=== PATIENT | male | born 1950 | race Caucasian/White ===

== ENCOUNTER 2020-04-15 02:24 | Emergency (ER) | payer MEDICARE, SELFPAY ==
--- NOTE | ~2020-04-15 | XR_ITS ---
EXAMINATION: XR hip LT min 2V DATE: 04/15/2020 02:53 INDICATION: Left hip pain. Fall. TECHNIQUE: 2 views of left hip were obtained. COMPARISON: Left hip radiographs 06/25/2019 FINDINGS: Bone alignment is normal. No fracture. There is moderate left hip osteoarthritis. IMPRESSION: 1. Moderate left hip osteoarthritis. Reviewed, dictated and finalized at location A.
[2020-04-15 02:23] VITALS: BP 172/74; PULSE 86; RESP 20; TEMP 37.3; O2SAT 99
--- NOTE | 2020-04-15 02:39 | ED.FALL ---
HPI - Fall General Chief Complaint: Fall Stated Complaint: L HIP PAIN/FALL Time Seen by Provider: 04/15/20 02:33 History of Present Illness HPI Narrative: Intermittent hip pain for months. Worse throughout the day yesterday. Overnight last night he was having trouble sleeping due to pain. He tried to get up to go to the bathroom and he felt like his leg gave out. He fell to the ground. He denies hitting his head or sustaining injury in the fall. He was not able to get off the ground so EMS was called. On arrival to the ED he says that he has no pain in the hip or anywhere and he would like to go home. Related Data Home Medications Medication Instructions Recorded Confirmed allopurinol [Zyloprim] 100 mg PO DAILY 10/26/19 10/31/19 aspirin 325 mg PO DAILY 10/26/19 10/31/19 carvedilol 25 mg PO BID 10/26/19 10/31/19 fluoxetine 40 mg PO DAILY 10/26/19 10/31/19 guanfacine 1 mg PO HS 10/26/19 10/31/19 hydralazine 10 mg PO TID 10/26/19 10/31/19 levetiracetam 500 mg PO BID 10/26/19 10/31/19 levothyroxine 175 mcg PO DAILY 10/26/19 10/31/19 rosuvastatin 10 mg PO DAILY 10/26/19 10/31/19 venlafaxine 75 mg PO DAILY 10/26/19 10/31/19 Allergies Allergy/AdvReac Type Severity Reaction Status Date / Time No Known Allergies Allergy Verified 04/15/20 02:29 Review of Systems Review of Systems: All systems reviewed & are unremarkable except as noted in HPI and below Constitutional: Constitutional: Denies fever(s) Eyes: Eyes: Denies change in vision Cardiovascular: Cardiovascular: Denies chest pain Respiratory: Respiratory: Denies dyspnea Musculoskeletal: Musculoskeletal: Denies back pain Neurologic: Denies dizziness and Denies syncope [facility] Past Medical History Medical History Chronic anemia CKD (chronic kidney disease) Stage III with creatinine currently at his baseline around 2.2 CVA (cerebral vascular accident) Hemorrhagic stroke in 2004, thrombotic stroke in 2014 resulting in left-sided hemiparesis and left facial droop, 3rd stroke 09/2018 in the left mid brain resulting in diplopia, right-sided weakness and double vision Depression Diabetic nephropathy Diabetic polyneuropathy History of BPH Hx of gout Hx of seizure disorder Hyperlipidemia Hypertension Hypothyroidism Insulin dependent diabetes mellitus On insulin pump. Patient's last hemoglobin A1c October 2018 was 7.[address] Surgical History Surgical History H/O cataract removal with insertion of prosthetic lens Bilateral History of shoulder surgery Right shoulder surgery to remove a bone spur Status post placement of implantable loop recorder December 2018 Family History Family History Father Diabetes mellitus Mother Family history of arthritis Other Family history of hearing loss Social History Social History Social History: They have living will papers but not power inspector wreath and she would like to have paperwork drawn up to say that she has power inspector wreath. The patient is a full code at this time. They have 2 children. 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 Tobacco type: smokeless tobacco Smokeless tobacco user: chewing tobacco Additional smoking assessment comments: chews tobacco daily Alcohol intake: current Drinks per week: 7 Substance use: current Substance use type: other Other substance usage details: chews tobacco Gender identity (if verbalized by the patient): Male Spiritual care concerns: No Agree to blood products: Yes Exam Const: General: no acute distress and alert Orientation/consciousness: patient oriented x3 HENMT: Head: normal to inspection Resp: Effort & Inspection: normal respiratory effort Auscultation: clear to auscultation bilaterally Cardio: Rate
--- NOTE | 2020-04-15 03:00 | PC.NURSE ---
at nurses station. states pt thinks his blood glucose is low. Blood glucose checked. FSBS 126.
[2020-04-15 03:03] LABS: Glucose Point of Care 126 (65-105)
--- NOTE | 2020-04-15 03:20 | PC.NURSE ---
pt assist x1 ambulate to bathroom. depends changed. pt tolerated well. denies pain
[2020-04-15 03:51] VITALS: BP 134/74; PULSE 87; RESP 20; O2SAT 98
== END 2020-04-15 03:54 | disposition home or self-care (01) ==
PROVIDERS: Emergency Provider Emergency Medicine
DX: M25.552 Pain in left hip (principal); E11.22 Type 2 diabetes mellitus with diabetic chronic kidney disease; I12.9 Hypertensive chronic kidney disease with stage 1 through stage 4 chronic kidney disease, or unspecified chronic kidney disease; F17.290 Nicotine dependence, other tobacco product, uncomplicated; N18.3 Chronic kidney disease, stage 3 (moderate); Z79.4 Long term (current) use of insulin; Z96.41 Presence of insulin pump (external) (internal); E11.42 Type 2 diabetes mellitus with diabetic polyneuropathy; D63.1 Anemia in chronic kidney disease; I69.954 Hemiplegia and hemiparesis following unspecified cerebrovascular disease affecting left non-dominant side; I69.992 Facial weakness following unspecified cerebrovascular disease; I69.998 Other sequelae following unspecified cerebrovascular disease; H53.2 Diplopia; I69.951 Hemiplegia and hemiparesis following unspecified cerebrovascular disease affecting right dominant side; M10.9 Gout, unspecified; Z98.42 Cataract extraction status, left eye; Z98.41 Cataract extraction status, right eye; Z96.1 Presence of intraocular lens; W18.39XA Other fall on same level, initial encounter
CPT/HCPCS: 73502; 82948; 99283

== ENCOUNTER 2020-05-16 16:03 | Emergency (ER) | payer MEDICARE, SELFPAY ==
--- NOTE | ~2020-05-16 | CT_ITS ---
EXAMINATION: CT brain wo con DATE: 05/16/2020 18:00 INDICATION: Headache. TECHNIQUE: Computed tomography (CT) of the head was performed without intravenous contrast. The mA wa s adjusted according to patient size. Iterative reconstruction technique was employed. The dose-lengt h product was 681.00 mGy-cm. COMPARISON: Head CT 10/26/2019, brain MRI 10/30/2019 FINDINGS: There are old infarcts involving the bilateral basal ganglia, right thalamus, and right fro ntoparietal region. There are scattered areas of low attenuation in the cerebral white matter. There is ex vacuo dilatation of body of right lateral ventricle. There are likely changes of ocular lens re placement surgeries. There is mild mucosal thickening in the ethmoid sinuses. There are old fracture deformities of the nasal bones. There are bilateral mastoid effusions. IMPRESSION: 1. Old infarcts involving the bilateral basal ganglia, right thalamus, and right frontoparietal regio n. 2. Mild nonspecific cerebral white matter disease, which likely represents chronic small vessel ische viktoria disease. Reviewed, dictated and finalized at location A. IMPRESSION: 1. Old infarcts involving the bilateral basal ganglia, right thalamus, and righ t frontoparietal region. 2. Mild nonspecific cerebral white matter disease, which likely represents certified mortician cande small vessel ischemic disease.
--- NOTE | ~2020-05-16 | XR_ITS ---
EXAMINATION: XR chest 1V portable DATE: 05/16/2020 18:07 INDICATION: Altered mental status. Hypertension. TECHNIQUE: A single frontal view of the chest was obtained. COMPARISON: Chest 2 views 06/25/2019 FINDINGS: There is mild elevation of right hemidiaphragm. No pneumonia, pleural effusion, or pneumoth orax. Cardiomegaly is noted. An electronic implant overlies left chest. IMPRESSION: 1. Cardiomegaly. Reviewed, dictated and finalized at location A. IMPRESSION: 1. Cardiomegaly.
[2020-05-16 16:23] VITALS: BP 156/86; PULSE 69; RESP 16; TEMP 36.8; O2SAT 99
--- NOTE | 2020-05-16 16:41 | ECG_ITS ---
Measurements Intervals [place] Rate: 70 P: 18 ME: 151 QRS: -8 QRSD: 99 T: 28 QT: 418 QTc: 453 Interpretive Statements SINUS RHYTHM DELAYED PRECORDIAL R/S TRANSITION NONSPECIFIC ST & T-WAVE ABNORMALITY- DIFFUSE LEADS BASELINE ARTIFACT- I, II, III, AVR, AVL, AVF BORDERLINE ECG Electronically Signed On 05-17-2020 11:06:12 CDT by Paddy Rose D.O.
[2020-05-16 16:53] LABS: Basophils Percent Auto 0.3 % (0.2-1.2); Eosinophils Absolute Auto 0.1 K/mm3 (0-0.3); Eosinophils Percent Auto 1.2 % (0-4.4); Hematocrit 28.7 % (42.0-52.0); Hemoglobin 9.9 g/dL (14.0-18.0); Immature Granulocyte Absolute 0.03 K/mm3 (0.00-0.031); Immature Granulocyte Percent A 0.3 % (0-0.5); Lymphocytes Absolute Auto 1.33 K/mm3 (0.9-3.2); Lymphocytes Percent Auto 13.5 % (18.3-44.2); Mean Corpuscular HGB Conc 34.5 g/dl (32-36); Mean Corpuscular Hemoglobin 30.4 pg (26-34); Mean Platelet Volume 9.9 fl (7.4-10.4); Monocytes Absolute Auto 1.5 K/mm3 (0.1-0.6); Monocytes Percent Auto 15.6 % (2.6-8.5); Neutrophils Absolute Auto 6.8 K/mm3 (1.3-6.7); Neutrophils Percent Auto 69.1 % (45.5-73.1); Platelet Count Result 233 k/mm3 (150-375); Red Blood Count 3.26 M/mm3 (4.6-6.20); Red Cell Distribution Width 13.2 % (11.5-14.5); White Blood Count 9.9 K/mm3 (4.5-10.0)
[2020-05-16 17:02] LABS: INR 1.2; Prothrombin Time 14.4 Seconds (11.1-14.7)
[2020-05-16 17:03] LABS: Partial Thromboplastin Time 38.1 SECONDS (22.3-36.8)
[2020-05-16 17:05] LABS: Blood Urea Nitrogen 28 mg/dL (9-20); Calcium 8.2 mg/dL (8.4-10.2); Carbon Dioxide 28 mmol/L (22-30); Chloride 105 mmol/L (98-107); Estimated CRCL calculation 23 ml/min; Estimated Glomerular Filt Rate 26; Glucose 108 mg/dL (75-110); Potassium 3.1 mmol/L (3.4-5.0); Sodium 140 mmol/L (137-145)
[2020-05-16 17:19] LABS: Troponin I 0.026 ng/mL (0.000-0.034)
--- NOTE | 2020-05-16 17:50 | PC.NURSE ---
PT TO ED ROOM 13 VIA PERSONAL WHEELCHAIR. C/O RT SIDED HEADACHE, HX 3 STROKES, LEFT SIDE DEFICIT.
--- NOTE | 2020-05-16 18:44 | PC.NURSE ---
ERP at bedside for assessment.
[2020-05-16 19:02] LABS: Glucose Point of Care 62 (65-105)
--- NOTE | 2020-05-16 19:03 | PC.NURSE ---
Per ERP - pt does not need an iv at this time.
[2020-05-16 19:04] VITALS: BP 204/99; PULSE 69; RESP 14; O2SAT 100
--- NOTE | 2020-05-16 19:24 | ED.GENADULT ---
HPI - General Adult General Chief complaint: Neuro Symptoms/Deficit Stated complaint: leavitt/neck pain/ams since last night Time Seen by Provider: 05/16/20 18:19 Source: patient and family Mode of arrival: wheelchair Limitations: no limitations History of Present Illness HPI narrative: 69-year-old with a history of diabetes on insulin pump, CVA here with complaints of headache. Patient states that he had pain in his vertex which radiated to his left arm earlier this morning. He states that he took aspirin and 2 glucose tablets which brought the pain down . Patient reports that for the past few weeks he is not been eating enough. Patient states that he has no appetite at times. He denies any chest pain, shortness of breath, abdominal pain. No history of fever or chills. Onset (ago): hour(s) (8) Location: head Radiation: extremity (Left upper extremity) Severity: moderate Severity scale (1-10): 6 Quality: aching Pain Consistency: now resolved Relieving factors: other (Aspirin and glucose tablet) Exacerbating factors: none Treatments prior to arrival: aspirin Related Data Home Medications Medication Instructions Recorded Confirmed allopurinol [Zyloprim] 100 mg PO DAILY 10/26/19 10/31/19 aspirin 325 mg PO DAILY 10/26/19 10/31/19 carvedilol 25 mg PO BID 10/26/19 10/31/19 fluoxetine 40 mg PO DAILY 10/26/19 10/31/19 guanfacine 1 mg PO HS 10/26/19 10/31/19 hydralazine 10 mg PO TID 10/26/19 10/31/19 levetiracetam 500 mg PO BID 10/26/19 10/31/19 levothyroxine 175 mcg PO DAILY 10/26/19 10/31/19 rosuvastatin 10 mg PO DAILY 10/26/19 10/31/19 venlafaxine 75 mg PO DAILY 10/26/19 10/31/19 Allergies Allergy/AdvReac Type Severity Reaction Status Date / Time No Known Allergies Allergy Verified 04/15/20 02:29 Review of Systems Review of Systems: All systems reviewed & are unremarkable except as noted in HPI and below Constitutional: Constitutional: Reports as per HPI Eyes: Eyes: Reports no additional eye complaints ENT: Reports system reviewed and no additional complaints, except as documented Cardiovascular: Cardiovascular: Reports as per HPI Respiratory: Respiratory: Reports as per HPI Gastrointestinal: Gastrointestinal: Reports no additional gastrointestinal complaints Musculoskeletal: Musculoskeletal: Reports no additional musculoskeletal complaints [facility] Past Medical History Medical History Chronic anemia CKD (chronic kidney disease) Stage III with creatinine currently at his baseline around 2.2 CVA (cerebral vascular accident) Hemorrhagic stroke in 2004, thrombotic stroke in 2014 resulting in left-sided hemiparesis and left facial droop, 3rd stroke 09/2018 in the left mid brain resulting in diplopia, right-sided weakness and double vision Depression Diabetic nephropathy Diabetic polyneuropathy History of BPH Hx of gout Hx of seizure disorder Hyperlipidemia Hypertension Hypothyroidism Insulin dependent diabetes mellitus On insulin pump. Patient's last hemoglobin A1c October 2018 was 7.[address] Surgical History Surgical History H/O cataract removal with insertion of prosthetic lens Bilateral History of shoulder surgery Right shoulder surgery to remove a bone spur Status post placement of implantable loop recorder December 2018 Family History Family History Father Diabetes mellitus Mother Family history of arthritis Other Family history of hearing loss Social History Social History Social History: They have living will papers but not power patent prosecution attorney and she would like to have paperwork drawn up to say that she has power patent prosecution attorney. The patient is a full code at this time. They have 2 children. 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 Tobacco type: smokeless tobacco
[2020-05-16 19:31] VITALS: BP 183/91; PULSE 76; RESP 18; O2SAT 96
[2020-05-16 20:02] VITALS: BP 203/90; PULSE 70; RESP 15; O2SAT 99
== END 2020-05-16 20:04 | disposition home or self-care (01) ==
PROVIDERS: Emergency Provider Family Medicine
DX: R51 Headache (principal); E11.22 Type 2 diabetes mellitus with diabetic chronic kidney disease; I12.9 Hypertensive chronic kidney disease with stage 1 through stage 4 chronic kidney disease, or unspecified chronic kidney disease; N18.3 Chronic kidney disease, stage 3 (moderate); E03.9 Hypothyroidism, unspecified; E11.21 Type 2 diabetes mellitus with diabetic nephropathy; E11.42 Type 2 diabetes mellitus with diabetic polyneuropathy; N40.0 Benign prostatic hyperplasia without lower urinary tract symptoms; Z96.41 Presence of insulin pump (external) (internal); Z79.4 Long term (current) use of insulin; E78.5 Hyperlipidemia, unspecified; M10.9 Gout, unspecified; D63.1 Anemia in chronic kidney disease; I69.954 Hemiplegia and hemiparesis following unspecified cerebrovascular disease affecting left non-dominant side; I69.992 Facial weakness following unspecified cerebrovascular disease; I69.998 Other sequelae following unspecified cerebrovascular disease; H53.2 Diplopia; G40.909 Epilepsy, unspecified, not intractable, without status epilepticus; Z98.42 Cataract extraction status, left eye; Z98.41 Cataract extraction status, right eye; Z96.1 Presence of intraocular lens; F17.220 Nicotine dependence, chewing tobacco, uncomplicated; Z79.82 Long term (current) use of aspirin; R90.82 White matter disease, unspecified; R94.31 Abnormal electrocardiogram [ECG] [EKG]
CPT/HCPCS: 36415; 70450; 71045; 80048; 82948; 84484; 85025; 85610; 85730; 93005; 99284

== ENCOUNTER 2020-06-04 12:26 | Emergency (ER) | payer MEDICARE, SELFPAY ==
--- NOTE | ~2020-06-04 | XR_ITS ---
XR femur RT min 2V DATE: 06/04/2020 13:48 INDICATION: Fall. Right leg injury, pain TECHNIQUE: AP and lateral views COMPARISON: None FINDINGS: No fracture or dislocation, periosteal reaction or bone destruction of the right femur is e vident. Normal alignment at the right hip and knee joints. There is extensive arterial calcification . There is chondrocalcinosis of the medial and lateral compartments of the knee. IMPRESSION: Right knee joint chondrocalcinosis No fracture or bone destruction of the right femur Reviewed, dictated and finalized at location B.
--- NOTE | ~2020-06-04 | XR_ITS ---
XR hip RT min 3V w AP pelvis DATE: 06/04/2020 13:48 INDICATION: Fall. Right hip and leg pain. TECHNIQUE: AP pelvis. AP, lateral and crosstable lateral views of right hip COMPARISON: None FINDINGS: No pelvic fracture or bone destruction. Normal alignment at the pubic symphysis and sacroil iac joints. No fracture or dislocation, avascular necrosis or bone destruction of the right hip is evident. Hip j oint spaces are symmetric and relatively preserved. IMPRESSION: No pelvic or right hip fracture is detected Reviewed, dictated and finalized at location B.
--- NOTE | ~2020-06-04 | XR_ITS ---
XR ankle RT min 3V DATE: 06/04/2020 13:48 INDICATION: Right lower extremity pain after fall TECHNIQUE: 3 views COMPARISON: None FINDINGS: There is a linear oblique fracture through the distal fibular shaft/ lateral malleolus with one cortical width maximal lateral displacement. No other fracture or any dislocation is evident. The ankle mortise is intact. There is calcification of the anterior and posterior tibial arteries and dorsalis pedis artery. IMPRESSION: Minimally laterally displaced fracture of the distal fibular shaft/lateral malleolus Reviewed, dictated and finalized at location B. IMPRESSION: Minimally laterally displaced fracture of the distal fibular shaft/ lateral malleolus
[2020-06-04 12:41] VITALS: BP 160/60; PULSE 66; RESP 16; TEMP 36.6; O2SAT 100
--- NOTE | 2020-06-04 15:02 | ED.GENADULT ---
HPI - General Adult General Chief complaint: Extremity Injury, Lower <BO Brown Last Filed: 06/04/20 15:11> Stated complaint: leg injury <BO Brown Last Filed: 06/04/20 15:11> Time Seen by Provider: 06/04/20 13:18 <BO Brown Last Filed: 06/04/20 15:11> Source: patient and family <BO Brown Last Filed: 06/04/20 15:11> Mode of arrival: ambulatory <BO Brown Last Filed: 06/04/20 15:11> Limitations: no limitations <BO Brown Last Filed: 06/04/20 15:11> History of Present Illness HPI narrative: Patient is a 70-year-old male who presents with family for evaluation of right leg injury that occurred 2 days ago patient injured the right ankle and thigh when he was trying to transfer out of bed on his own patient has history of left-sided deficits secondary to CVA patient notes moderate aching pain to the right ankle with mild pain to the right thigh patient has been unable to transfer or bear weight since the onset of symptoms. Patient denies head injury syncope loss of consciousness <BO Brown Last Filed: 06/04/20 15:11> Related Data Home medications: Home Medications Medication Instructions Recorded Confirmed allopurinol [Zyloprim] 100 mg PO DAILY 10/26/19 10/31/19 aspirin 325 mg PO DAILY 10/26/19 10/31/19 carvedilol 25 mg PO BID 10/26/19 10/31/19 fluoxetine 40 mg PO DAILY 10/26/19 10/31/19 guanfacine 1 mg PO HS 10/26/19 10/31/19 hydralazine 10 mg PO TID 10/26/19 10/31/19 levetiracetam 500 mg PO BID 10/26/19 10/31/19 levothyroxine 175 mcg PO DAILY 10/26/19 10/31/19 rosuvastatin 10 mg PO DAILY 10/26/19 10/31/19 <BO Brown Last Filed: 06/04/20 15:11> Allergies/adverse reactions: Allergies Allergy/AdvReac Type Severity Reaction Status Date / Time No Known Allergies Allergy Verified 06/04/20 12:46 <Hiro Stallworth PA-C - Last Filed: 06/04/20 15:11> Review of Systems Review of Systems: All systems reviewed & are unremarkable except as noted in HPI and below <Hiro Stallworth PA-C - Last Filed: 06/04/20 15:11> [facility] Past Medical History Medical History: Medical History Chronic anemia CKD (chronic kidney disease) Stage III with creatinine currently at his baseline around 2.2 CVA (cerebral vascular accident) Hemorrhagic stroke in 2004, thrombotic stroke in 2014 resulting in left-sided hemiparesis and left facial droop, 3rd stroke 09/2018 in the left mid brain resulting in diplopia, right-sided weakness and double vision Depression Diabetic nephropathy Diabetic polyneuropathy History of BPH Hx of gout Hx of seizure disorder Hyperlipidemia Hypertension Hypothyroidism Insulin dependent diabetes mellitus On insulin pump. Patient's last hemoglobin A1c October 2018 was 7.[address] <Hiro Stallworth PA-C - Last Filed: 06/04/20 15:11> Surgical History Surgical History: Surgical History H/O cataract removal with insertion of prosthetic lens Bilateral History of shoulder surgery Right shoulder surgery to remove a bone spur Status post placement of implantable loop recorder December 2018 <Hiro Stallworth PA-C - Last Filed: 06/04/20 15:11> Social History Social History: Social History Social History: They have living will papers but not power tax attorney and she would like to have paperwork drawn up to say that she has power tax attorney. The patient is a full code at this time. They have 2 children. 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 Tobacco type: smokeless tobacco Smokeless tobacco user: chewing tobacco Additional smoking assessment comments: chews tobacco daily Alcohol intake: current Drinks per week: 7 Substance use: current
--- NOTE | 2020-06-04 15:43 | PCCCNOTE ---
Imaging report and ED physician note faxed to Dr Penny Vergara [phone] at [phone]
[2020-06-04 16:50] VITALS: BP 170/83; PULSE 68; RESP 97; O2SAT 16
== END 2020-06-04 16:50 | disposition home or self-care (01) ==
PROVIDERS: Emergency Provider General Practice
DX: S82.61XA Displaced fracture of lateral malleolus of right fibula, initial encounter for closed fracture (principal); X50.0XXA Overexertion from strenuous movement or load, initial encounter; I13.10 Hypertensive heart and chronic kidney disease without heart failure, with stage 1 through stage 4 chronic kidney disease, or unspecified chronic kidney disease; E11.22 Type 2 diabetes mellitus with diabetic chronic kidney disease; N18.3 Chronic kidney disease, stage 3 (moderate); Z79.4 Long term (current) use of insulin; Z96.41 Presence of insulin pump (external) (internal); E03.9 Hypothyroidism, unspecified
CPT/HCPCS: 29515; 73502; 73552; 73610; 99284

== ENCOUNTER 2020-06-13 16:50 | Emergency (ER) | payer MEDICARE, SELFPAY ==
--- NOTE | ~2020-06-13 | XR_ITS ---
EXAMINATION: XR wrist LT min 3V EXAM DATE: 06/13/2020 19:32 INDICATION: Initial encounter following injury, with pain of the left wrist. TECHNIQUE: Left wrist frontal, frontal with ulnar deviation, oblique and lateral projections obtained and reviewed. There is no prior study for comparison. FINDINGS: Left wrist scapholunate joint space is maintained. There are no acute fractures or dislocat ions identified. There is no subcutaneous gas. There are arterial calcifications, arteriosclerosis. There are no radiopaque foreign bodies. IMPRESSION: 1. Left wrist exam without acute osseous findings. Reviewed, dictated and finalized at location A.
--- NOTE | ~2020-06-13 | XR_ITS ---
EXAMINATION: XR hip LT 2V w AP pelvis EXAM DATE: 06/13/2020 18:56 INDICATION: Initial encounter following injury, with pain of the fall, left hip pain. TECHNIQUE: Left hip frontal, 'frog leg' projections for interpretation. Frontal projection pelvis. C omparison is made to prior examination from 06/04/2020. FINDINGS: Smooth left hip femoral head contour, no radiographic evidence of avascular necrosis. Ther e is moderate symmetric bilateral hip primary osteoarthritis. There are no acute fractures or disloca tions identified. There is no subcutaneous gas. The soft tissue is unremarkable. There are no rad iopaque foreign bodies. IMPRESSION: 1. Pelvis, left hip exam without acute osseous findings. Reviewed, dictated and finalized at location A.
--- NOTE | ~2020-06-13 | XR_ITS ---
EXAMINATION: XR humerus LT EXAM DATE: 06/13/2020 18:57 INDICATION: Initial encounter following injury, with pain of the left arm. TECHNIQUE: 2 orthogonal projections left humerus. There is no prior study for comparison. FINDINGS: There are no acute fractures or dislocations identified. There is no subcutaneous gas. The re is soft tissue swelling over the elbow posteriorly. There are no radiopaque foreign bodies. IMPRESSION: 1. XR humerus LT exam without acute osseous findings. 2. Soft tissue swelling. Reviewed, dictated and finalized at location A.
--- NOTE | ~2020-06-13 | XR_ITS ---
EXAMINATION: XR forearm LT 2V EXAM DATE: 06/13/2020 18:56 INDICATION: Initial encounter following injury, with pain of the left forearm. TECHNIQUE: Left forearm frontal and lateral projections obtained and reviewed. There is no prior pamela dy for comparison. FINDINGS: There is possible scaphoid waist fracture. Please clinically correlate, if there is tendern ess over the wrist recommend dedicated wrist exam. The left radius and ulna are unremarkable. IMPRESSION: 1. Possible left scaphoid waist fracture, clinical correlation. Reviewed, dictated and finalized at location A.
--- NOTE | ~2020-06-13 | CT_ITS ---
EXAMINATION: CT brain wo con EXAM DATE: 06/13/2020 18:25 INDICATION: Fall, abrasion to left ear. History of stroke. TECHNIQUE: Spiral CT of the head was performed without contrast. Axial, coronal and sagittal images were reviewed. The dose-length product (DLP) for this examination was 681.00 mGy-cm. The exposure w as tailored according to patient size, and iterative reconstruction (ASIR) was used as additional dos e reduction technique. Comparison is made to prior examination from 05/16/2020. FINDINGS: There is moderate to large old right-sided middle cerebral artery distribution infarction. There are bilateral basal ganglia lacunar infarctions. There is no acute intraparenchymal hemorrhage. No evidence of intraparenchymal brain mass lesion. No evidence of acute infarction. Please note t hat initial head CT has limited sensitivity for small or acute infarctions. There is mild periventric ular and subcortical hypodensity, nonspecific but probably related to small vessel ischemic disease. There is mild prominence of the sulci and ventricles related to cerebral atrophy. There is intrac ranial carotid arteriosclerosis. There are no extra-axial collections. There is no mass effect or m idline shift. Patient has had bilateral ocular lens surgery. Soft tissue is unremarkable. The visu alized sinuses and mastoid air cells are well aerated. There is no interval change. IMPRESSION: 1. Old infarctions. 2. Chronic age related findings. Reviewed, dictated and finalized at location A.
[2020-06-13 17:10] VITALS: BP 164/72; PULSE 74; RESP 18; TEMP 36.7; O2SAT 99
--- NOTE | 2020-06-13 17:51 | PC.NURSE ---
Pt c/o need to defecate and asking to go to the bathroom. Explained due to patient's hx of falling frequently do not want to take a chance of the pt falling again. Offered bedpan multiple times and the patient refused.
--- NOTE | 2020-06-13 18:11 | ED.FALL ---
HPI - Fall General Chief Complaint: Fall Stated Complaint: fall, left arm injury Time Seen by Provider: 06/13/20 17:05 Source: patient and family Mode of arrival: wheelchair Limitations: dementia History of Present Illness HPI Narrative: This patient is a 70 year old male with history left hemiplegia, CVA, DM who presents for evaluation s/p fall. His states patient was attempting to transfer to his wheel chair without assistance and he fell on to his left side. She states patient has abrasion to left ear and left arm swelling with abrasions. Patient denies pain to arm or his left leg. He also denies left rib pain. complaint: fall Related Data Home Medications Medication Instructions Recorded Confirmed allopurinol [Zyloprim] 100 mg PO DAILY 10/26/19 06/12/20 aspirin 325 mg PO DAILY 10/26/19 06/12/20 carvedilol 25 mg PO BID 10/26/19 06/12/20 fluoxetine 40 mg PO DAILY 10/26/19 06/12/20 guanfacine 1 mg PO HS 10/26/19 06/12/20 hydralazine 10 mg PO TID 10/26/19 06/12/20 levetiracetam 500 mg PO BID 10/26/19 06/12/20 levothyroxine 175 mcg PO DAILY 10/26/19 06/12/20 rosuvastatin 10 mg PO DAILY 10/26/19 06/12/20 Allergies Allergy/AdvReac Type Severity Reaction Status Date / Time No Known Allergies Allergy Verified 06/13/20 17:19 Review of Systems Review of Systems: All systems reviewed & are unremarkable except as noted in HPI and below Constitutional: Constitutional: Denies chills and Denies fever(s) Cardiovascular: Cardiovascular: Denies chest pain Respiratory: Respiratory: Denies cough and Denies dyspnea Musculoskeletal: Musculoskeletal: Denies arthralgias [facility] Past Medical History Medical History Chronic anemia CKD (chronic kidney disease) Stage III with creatinine currently at his baseline around 2.2 CVA (cerebral vascular accident) Hemorrhagic stroke in 2004, thrombotic stroke in 2014 resulting in left-sided hemiparesis and left facial droop, 3rd stroke 09/2018 in the left mid brain resulting in diplopia, right-sided weakness and double vision Depression Diabetic nephropathy Diabetic polyneuropathy History of BPH Hx of gout Hx of seizure disorder Hyperlipidemia Hypertension Hypothyroidism Insulin dependent diabetes mellitus On insulin pump. Patient's last hemoglobin A1c October 2018 was 7.[address] Surgical History Surgical History H/O cataract removal with insertion of prosthetic lens Bilateral History of shoulder surgery Right shoulder surgery to remove a bone spur Status post placement of implantable loop recorder December 2018 Social History Social History Social History: They have living will papers but not power patent attorney and she would like to have paperwork drawn up to say that she has power patent attorney. The patient is a full code at this time. They have 2 children. 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 Tobacco type: smokeless tobacco Smokeless tobacco user: chewing tobacco Additional smoking assessment comments: chews tobacco daily Alcohol intake: current Drinks per week: 7 Substance use: current Substance use type: other Other substance usage details: chews tobacco Gender identity (if verbalized by the patient): Male Spiritual care concerns: No Agree to blood products: Yes Exam Const: General: alert Other: oriented to person, place, age HENMT: Other: left ear lobe pinna with bruising and abrasion Eyes: EOM: EOMs intact bilaterally Chest: Chest palpation & inspection: normal inspection of the chest and no tenderness Resp: Effort & Inspection: normal respiratory effort and no retractions Auscultation: clear to auscultation bilaterally Cardio: Rate: regular rate Rhythm: regular rhythm Heart sounds: no murmurs GI: GI Palp: Yes Soft to palpation and N
--- NOTE | 2020-06-13 18:32 | PC.NURSE ---
Pt's to xray to remove pt's blood sugar reader from left arm.
--- NOTE | 2020-06-13 19:05 | PC.NURSE ---
Report to NHUNG Rivera, to continue care.
[2020-06-13 20:19] VITALS: BP 178/75; PULSE 79; RESP 19; TEMP 36.3; O2SAT 100
== END 2020-06-13 20:20 | disposition home or self-care (01) ==
PROVIDERS: Emergency Provider General Practice
DX: S51.812A Laceration without foreign body of left forearm, initial encounter (principal); S61.512A Laceration without foreign body of left wrist, initial encounter; W01.0XXA Fall on same level from slipping, tripping and stumbling without subsequent striking against object, initial encounter; Z72.0 Tobacco use; I12.9 Hypertensive chronic kidney disease with stage 1 through stage 4 chronic kidney disease, or unspecified chronic kidney disease; E11.22 Type 2 diabetes mellitus with diabetic chronic kidney disease; N18.3 Chronic kidney disease, stage 3 (moderate); Z96.41 Presence of insulin pump (external) (internal); Z79.4 Long term (current) use of insulin; F32.9 Major depressive disorder, single episode, unspecified; E11.43 Type 2 diabetes mellitus with diabetic autonomic (poly)neuropathy; E03.9 Hypothyroidism, unspecified; E78.5 Hyperlipidemia, unspecified
CPT/HCPCS: 70450; 73060; 73090; 73110; 73502; 99284

== ENCOUNTER 2020-06-18 15:58 | Outpatient (CLI) | payer MEDICARE, SELFPAY ==
--- NOTE | ~2020-06-18 | MR_ITS ---
EXAMINATION: MR brain/brain stem wo con DATE: 06/18/2020 17:07 INDICATION: Stroke. TECHNIQUE: Magnetic resonance imaging (MRI) of the brain and brainstem was performed without intraven ous contrast. Sequences included sagittal and axial T1-weighted FSE, axial diffusion-weighted FS EPI, axial T2*-weighted GRE, axial T2-weighted FLAIR Propeller, and axial T2-weighted Propeller. Apparent diffusion coefficient (ADC) maps were created. COMPARISON: Brain MRI 10/30/2019, head CT 06/13/2020, 05/16/20 FINDINGS: There is chronic encephalomalacia involving right frontal and parietal lobes and the right basal ganglia and right thalamus. There is a small old infarct in the left frontal lobe francisco radiat a. There is chronic Wallerian degeneration in the brainstem on the right. There is a 10 mm intraparen chymal hematoma in right temporal lobe. There are scattered areas of old blood products in the right frontoparietal region, right basal ganglia, and left frontal lobe. There are scattered areas of nonsp ecific increased T2-weighted signal intensity in the cerebral white matter. There is no acute ischemi c infarct or abnormal mass lesion. There is ex vacuo dilatation of body of right lateral ventricle. T here are likely changes of ocular lens replacement surgeries. There is mild mucosal thickening in the ethmoid sinuses. There are bilateral mastoid effusions. IMPRESSION: 1. Subacute 10 mm intraparenchymal hematoma in right temporal lobe, stable from 06/13/20 and new from 05/16/20. 2. Chronic encephalomalacia involving the right frontal and parietal lobes, right basal ganglia, righ t thalamus, and left frontal lobe. 3. Moderate nonspecific cerebral white matter disease, which likely represents chronic small vessel i schemic disease. Reviewed, dictated and finalized at location A. IMPRESSION: 1. Subacute 10 mm intraparenchymal hematoma in right temporal lobe, stable from 06/13/20 and new from 05/16/20. 2. Chronic encephalomalacia involving the right frontal and parietal lobes, rig ht basal ganglia, right thalamus, and left frontal lobe. 3. Moderate nonspecific cerebral white matter disease, which likely represents chronic small vessel ischemic disease.
== END 2020-06-18 15:59 | disposition home or self-care (01) ==
PROVIDERS: Visit Provider Psychiatry & Neurology Neurology
DX: I63.9 Cerebral infarction, unspecified (principal); R93.0 Abnormal findings on diagnostic imaging of skull and head, not elsewhere classified
CPT/HCPCS: 70551

== ENCOUNTER 2020-06-29 14:12 | Inpatient (IN) | payer MEDICARE, SELFPAY ==
[2020-06-29] VITALS (8 sets, daily range): BP systolic 112–163; BP diastolic 56–86; PULSE 61–88; RESP 12–18; TEMP 35.9–36.9; O2SAT 96–99; BMI 26.0
--- NOTE | ~2020-06-29 | CT_ITS ---
EXAMINATION: CT BRAIN W/O DATE: 06/29/2020 14:50 INDICATION: Loss of consciousness. Lethargy. TECHNIQUE: Computed tomography (CT) of the head was performed without intravenous contrast. The dose- length product was 681.00 mGy-cm. The mA was adjusted according to patient size. Iterative reconstruc tion technique was employed. COMPARISON: 06/13/2020 FINDINGS: Generalized atrophy. There are chronic infarctions of the right frontal lobe, parietal lobe , left frontal lobe, bilateral basal ganglia. There is intracranial atherosclerosis. There are scatte red mild periventricular and subcortical white matter changes, most likely related to small vessel is chemic disease (microangiopathy). No ventriculomegaly or midline shift. Midline sagittal images demonstrate a normal corpus callosum, c raniovertebral junction and sella turcica. Basilar cisterns are patent. Small mastoid effusions. Paranasal sinuses are unremarkable. No depressed skull fractures. IMPRESSION: 1. No acute intracranial abnormality. 2: Multiple chronic bilateral infarctions. Reviewed, dictated and finalized at location A.
--- NOTE | ~2020-06-29 | XR_ITS ---
EXAMINATION: XR chest 1V 06/29/2020 14:51 INDICATION: Shortness of breath PROCEDURE: AP view of the chest COMPARISON: 05/16/2020 FINDINGS: The lungs are clear. There is probable old healed left humeral fracture. The cardiomediasti nal silhouette is within normal limits. There are no pleural effusions. There is no pneumothorax barkley spected. IMPRESSION: 1: NO ACUTE CARDIOPULMONARY DISEASE. Reviewed, dictated and finalized at location A.
--- NOTE | ~2020-06-29 | CT_ITS ---
EXAMINATION: CT abdomen pelvis wo con DATE: 06/29/2020 18:17 INDICATION: Hematuria TECHNIQUE: Computed tomography (CT) of the abdomen and pelvis was performed without intravenous contr ast. The dose-length product was 860.46 mGy-cm. Automated exposure control and iterative reconstructi on technique were employed. COMPARISON: None. FINDINGS: Left lower lobe atelectasis. Trace pleural effusions. Moderate pericardial effusion. There is atherosclerosis of the aorta and coronary arteries. There is extensive atherosclerosis. The liver, spleen, pancreas, adrenal glands and kidneys are unrem arkable. Gallbladder is present. There is mild thickening of the bladder wall with mild perivesical f atty infiltration. There is mild infiltration of the perirectal fat. Generalized osteopenia. There ar e degenerative changes of the hips and lumbar spine. IMPRESSION: 1. Moderate pericardial effusion. 2: Bladder wall thickening with perivesical fatty infiltration, suspicious for cystitis. 3: Mild perirectal fatty infiltration, suspicious for proctitis. 4: Trace pleural effusions. Reviewed, dictated and finalized at location A.
--- NOTE | 2020-06-29 14:28 | ECG_ITS ---
Measurements Intervals Decker Rate: 73 P: 7 IA: 155 QRS: -14 QRSD: 106 T: 57 QT: 426 QTc: 471 Interpretive Statements SINUS RHYTHM DELAYED PRECORDIAL R/S TRANSITION BORDERLINE ST-T WAVE ABNORMALITY- LAT/HIGH LAT LEADS BASELINE WANDER- I, II BORDERLINE ECG Electronically Signed On 06-29-2020 15:01:31 CDT by Paddy Rose D.O.
[2020-06-29 15:13] LABS: Basophils Percent Auto 0.3 % (0.2-1.2); Eosinophils Absolute Auto 0.1 K/mm3 (0-0.3); Eosinophils Percent Auto 0.5 % (0-4.4); Hematocrit 26.1 % (42.0-52.0); Hemoglobin 8.9 g/dL (14.0-18.0); Immature Granulocyte Absolute 0.07 K/mm3 (0.00-0.031); Immature Granulocyte Percent A 0.5 % (0-0.5); Lymphocytes Absolute Auto 1.26 K/mm3 (0.9-3.2); Lymphocytes Percent Auto 8.3 % (18.3-44.2); Mean Corpuscular HGB Conc 34.1 g/dl (32-36); Mean Corpuscular Hemoglobin 30.2 pg (26-34); Mean Corpuscular Volume 88.5 fl (80-100); Mean Platelet Volume 9.1 fl (7.4-10.4); Monocytes Absolute Auto 2.1 K/mm3 (0.1-0.6); Monocytes Percent Auto 13.8 % (2.6-8.5); Neutrophils Absolute Auto 11.7 K/mm3 (1.3-6.7); Neutrophils Percent Auto 76.6 % (45.5-73.1); Platelet Count Result 307 k/mm3 (150-375); Red Blood Count 2.95 M/mm3 (4.6-6.20); Red Cell Distribution Width 12.7 % (11.5-14.5); White Blood Count 15.2 K/mm3 (4.5-10.0)
[2020-06-29 15:25] LABS: INR 1.2; Prothrombin Time 14.6 Seconds (11.1-14.7)
[2020-06-29 15:25] LABS: Alanine Aminotransferase 21 U/L (4-50); Albumin Level 3.3 g/dL (3.5-5.1); Alkaline Phosphatase 123 U/L (38-126); Anion Gap 8 mmol/L (8-16); Aspartate Amino Transferase 21 U/L (17-59); Bilirubin,Total 0.5 mg/dL (0.2-1.3); Blood Urea Nitrogen 48 mg/dL (9-20); Calcium 8.2 mg/dL (8.4-10.2); Carbon Dioxide 25 mmol/L (22-30); Chloride 105 mmol/L (98-107); Estimated CRCL calculation 20 ml/min; Estimated Glomerular Filt Rate 22; Glucose 262 mg/dL (75-110); Potassium 4.1 mmol/L (3.4-5.0); Sodium 138 mmol/L (137-145)
[2020-06-29 15:37] LABS: NT Pro B Type Natriuretic Pept 1740 PG/ML (5-100); Troponin I 0.018 ng/mL (0.000-0.034)
[2020-06-29 17:30] LABS: Add Urine Microscopic? YES; Amorphous Sediment Urine Few; Appearance Urine Cloudy (Clear); Bacteria Urine 1+ /hpf; Bilirubin Urine Negative (Negative); Blood Urine 2+ (Negative); Color Urine Yellow (Yellow); Glucose Urine UA 3+ mg/dL (Negative); Ketones Urine Negative (Negative); Leukocyte Esterase Ur 1+ LEU/UL (Negative); Mucus Urine Rare /lpf; Nitrate Urine Negative (Negative); Protein Urine 3+ mg/dL (Negative); RBC Urine 51-75 /hpf (0-2); Specific Grav Ur 1.014 (1.001-1.035); Squamous Epithelial Cell Urine Rare /hpf (Few); Urobilinogen Urine Negative mg/dL (<2.0); WBC Clumps Urine Present /HPF; WBC Urine 51-75 /hpf
--- NOTE | 2020-06-29 18:49 | ED.GENADULT ---
HPI - General Adult General Chief complaint: Weakness Stated complaint: lethargy Time Seen by Provider: 06/29/20 14:19 Source: patient and family Mode of arrival: EMS Limitations: altered mental status History of Present Illness HPI narrative: 70-year-old with a history of diabetes on insulin pump, hypertension, CKD, seizure disorder, history of multiple strokes, here with complaints of marked weakness and not feeling well since early this morning. As per the patient was fine all day yesterday got up at 10:00 not answering questions appropriately seem to be very confused and weak. She denies any fever or chills. Patient denies any headache, shortness of breath or cough or abdominal pain. Onset (ago): hour(s) (1) Severity: moderate Related Data Home Medications Medication Instructions Recorded Confirmed allopurinol [Zyloprim] 100 mg PO DAILY 10/26/19 06/12/20 aspirin 325 mg PO DAILY 10/26/19 06/12/20 carvedilol 25 mg PO BID 10/26/19 06/12/20 fluoxetine 40 mg PO DAILY 10/26/19 06/12/20 guanfacine 1 mg PO HS 10/26/19 06/12/20 hydralazine 10 mg PO TID 10/26/19 06/12/20 levetiracetam 500 mg PO BID 10/26/19 06/12/20 levothyroxine 175 mcg PO DAILY 10/26/19 06/12/20 rosuvastatin 10 mg PO DAILY 10/26/19 06/12/20 Allergies Allergy/AdvReac Type Severity Reaction Status Date / Time No Known Allergies Allergy Verified 06/29/20 18:27 Review of Systems Review of Systems: All systems reviewed & are unremarkable except as noted in HPI and below Constitutional: Constitutional: Reports no additional constitutional complaints Eyes: Eyes: Reports no additional eye complaints ENT: Reports system reviewed and no additional complaints, except as documented Cardiovascular: Cardiovascular: Reports no additional cardiovascular complaints Respiratory: Respiratory: Reports no additional respiratory complaints Gastrointestinal: Gastrointestinal: Reports no additional gastrointestinal complaints Musculoskeletal: Musculoskeletal: Reports no additional musculoskeletal complaints [facility] Past Medical History Medical History Chronic anemia CKD (chronic kidney disease) Stage III with creatinine currently at his baseline around 2.2 CVA (cerebral vascular accident) Hemorrhagic stroke in 2004, thrombotic stroke in 2014 resulting in left-sided hemiparesis and left facial droop, 3rd stroke 09/2018 in the left mid brain resulting in diplopia, right-sided weakness and double vision Depression Diabetic nephropathy Diabetic polyneuropathy History of BPH Hx of gout Hx of seizure disorder Hyperlipidemia Hypertension Hypothyroidism Insulin dependent diabetes mellitus On insulin pump. Patient's last hemoglobin A1c October 2018 was 7.[address] Surgical History Surgical History H/O cataract removal with insertion of prosthetic lens Bilateral History of shoulder surgery Right shoulder surgery to remove a bone spur Status post placement of implantable loop recorder December 2018 Family History Family History Father Diabetes mellitus Mother Family history of arthritis Other Family history of hearing loss Social History Social History Social History: They have living will papers but not power employment attorney and she would like to have paperwork drawn up to say that she has power employment attorney. The patient is a full code at this time. They have 2 children. 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 Tobacco type: smokeless tobacco Smokeless tobacco user: chewing tobacco Additional smoking assessment comments: chews tobacco daily Alcohol intake: current Drinks per week: 7 Substance use: current Substance use type: other Other substance usage details: chews tobacco Gender identity (if verbalized by the wood
--- NOTE | 2020-06-29 21:17 | PM.IMHP ---
H&P: HPI History of Present Illness Date/Time: 06/29/20 21:17 Chief complaint: altered mental status, uti Narrative: Cliff Call is a 70 year old male Who has had multiple strokes. He has left-sided weakness to the left lower leg and his left arm is flaccid. He is also brittle diabetic. The patient has had multiple falls. He has insulin-dependent has a [employer] insulin pump. The patient has become more weak since this morning and confused. The patient's said that he was fine all day yesterday but then when he got up at 10:00 a.m. this morning he was acting confused and answering questions inappropriately. No fever or chills. Patient recently had a right ankle fracture and was seen by ortho. He has a walking boot on the right foot. It looks like he was seen in the emergency room on 06/04/2020 the patient had an injury when he was trying to transfer out of bed. He had a minimally laterally displaced fracture of the distal fibula shaft lateral malleolus. Also from 06/13/2020 there was x-ray of the forearm and said possible left scaphoid wrist fracture clinical Coreg ablation. Patient after appears to have a fluid filled cystic nodule to his left forearm and the patient stated that this has been a chronic condition for him. His hemoglobin is now 8.9. And last month and had been 9.9. He does not notice any blood in his stool. He is on an aspirin. He does have an insulin pump which has a basal rate. His typically takes care of this pump. However the last time he was here in [place] will allow the patient to keep his pump on and we would just bolus him. The patient states that he would like to do this again since he is so brittle he would like to continue with his basal rate and we could just bolus him with the sliding scale insulin. I spoke with the warehouse associate who stated this would be okay. The patient was found to have a UTI today. Urine cultures are pending. He was started on ceftriaxone. The patient had a a CT of the abdomen and pelvis Today due to hematuria. Patient has a moderate pericardial effusion. Bilateral thickening with perivesical fatty infiltration suspicious for cystitis. Mild perirectal fatty infiltrate , suspicious for proctitis. Trace pleural effusions. Cardiology has been consulted. And lab work has been ordered. The patient is on room air and has no complaints of any shortness of breath or chest pain. He is afebrile. Date of service 06/29/2020. Review of Systems Review of Systems: All systems reviewed & are unremarkable except as noted in HPI and below Constitutional: Constitutional: Reports as per HPI and Reports no additional constitutional complaints Eyes: Eyes: Reports as per HPI and Reports no additional eye complaints ENT: Reports system reviewed and no additional complaints, except as documented and Reports Normal hearing present Cardiovascular: Cardiovascular: Reports no additional cardiovascular complaints Respiratory: Respiratory: Reports no additional respiratory complaints and Reports no additional respiratory complaints Gastrointestinal: Gastrointestinal: Reports as per HPI and Reports no additional gastrointestinal complaints Musculoskeletal: Musculoskeletal: Reports no additional musculoskeletal complaints Integumentary/Breasts: Skin/Breast: Reports system reviewed and no additional complaints, except as docu and Reports as per HPI Neurologic: Reports system reviewed and no additional complaints, except as documented, Reports as per HPI and Reports Normal hearing present Psychiatric: Psychiatric: Reports no additional psychiatric complaints and Reports as per HPI Endocrine: Endocrine: Reports no additional endocrine complaints Hematologic/Lymphatic: Hematologic/Lymphatic: Reports no additional hematologic/lymphatic complaints Allergic/Immunologic: Allergic/Immunologic: Reports no additional allergic/immunologic complaints PMFSH Surgical History Surgical History (Reviewe
[2020-06-29] MEDS: SODIUM CHLORIDE 0.9% IV 1,000 ML 75 ML IV CONT (21:19)
[2020-06-29 21:35] LABS: Glucose Point of Care 210 (65-105)
[2020-06-29] MEDS: CLOPIDOGREL BISULFATE 75 MG TABLET PO (23:21)
[2020-06-29] MEDS: guanFACINE HCL 1 MG TABLET PO (23:22)
[2020-06-30] VITALS (12 sets, daily range): BP systolic 119–170; BP diastolic 56–78; PULSE 62–75; RESP 15–20; TEMP 36.2–36.5; O2SAT 99–100
[2020-06-30] MEDS: LEVOTHYROXINE SODIUM 100 MCG TABLET PO (05:52)
[2020-06-30] MEDS: LEVOTHYROXINE SODIUM 75 MCG TABLET PO (05:52)
[2020-06-30 06:16] LABS: Basophils Percent Auto 0.2 % (0.2-1.2); Eosinophils Absolute Auto 0.1 K/mm3 (0-0.3); Eosinophils Percent Auto 1.1 % (0-4.4); Hematocrit 24.2 % (42.0-52.0); Immature Granulocyte Absolute 0.04 K/mm3 (0.00-0.031); Immature Granulocyte Percent A 0.4 % (0-0.5); Lymphocytes Absolute Auto 1.44 K/mm3 (0.9-3.2); Lymphocytes Percent Auto 12.9 % (18.3-44.2); Mean Corpuscular HGB Conc 33.1 g/dl (32-36); Mean Corpuscular Hemoglobin 29.4 pg (26-34); Mean Platelet Volume 9.5 fl (7.4-10.4); Monocytes Absolute Auto 1.7 K/mm3 (0.1-0.6); Monocytes Percent Auto 14.8 % (2.6-8.5); Neutrophils Absolute Auto 7.9 K/mm3 (1.3-6.7); Neutrophils Percent Auto 70.6 % (45.5-73.1); Platelet Count Result 291 k/mm3 (150-375); Red Blood Count 2.72 M/mm3 (4.6-6.20); Red Cell Distribution Width 12.6 % (11.5-14.5); White Blood Count 11.2 K/mm3 (4.5-10.0)
[2020-06-30 06:23] LABS: Hemoglobin A1C 7.5 % (<5.7)
[2020-06-30 06:40] LABS: Anion Gap 6 mmol/L (8-16); Blood Urea Nitrogen 46 mg/dL (9-20); Calcium 7.8 mg/dL (8.4-10.2); Carbon Dioxide 24 mmol/L (22-30); Chloride 105 mmol/L (98-107); Estimated CRCL calculation 21 ml/min; Estimated Glomerular Filt Rate 23; Glucose 344 mg/dL (75-110); Potassium 3.9 mmol/L (3.4-5.0); Sodium 135 mmol/L (137-145)
[2020-06-30 08:14] LABS: Glucose Point of Care 357 (65-105)
[2020-06-30 08:31] LABS: Erythrocyte Sedimentation Rate 88 mm/hr (0-20)
--- NOTE | 2020-06-30 08:38 | P.PNIM_ITS ---
Progress Note: A&P Assessment and Plan (1) UTI (urinary tract infection): Code(s): N39.0 - Urinary tract infection, site not specified Status: Acute Assessment and Plan: UA suspcious for UTI; patient experiencing dysuria. Urine cultures are pending. AMS appears to have improved overnight with abx * Continue Rocephin which was started from the ER * Tailor antibiotics to cultures * Monitor (2) Effusion, pericardium: Code(s): I31.3 - Pericardial effusion (noninflammatory) Status: Acute Assessment and Plan: Moderate as evident on CT abd/pelvis. Cardiology has been consulted by ED; appreciate recommendations. Appears to be hemodynamically stable without compromise. * Await further recommendations from Cardiology * Consider Echo in future; OP? 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 Brittle diabetic. It has been arranged with Nursing to allow basal rate from pump with correctional insulin administered by nursing. BGL in 300s today. A1c 7.5 this stay. * Continue basal insulin via pump * Accuchecks ACHS, hypoglycemia protocol, correctional insulin, diabetic diet * Monitor closely (4) Hyperlipidemia: Code(s): E78.5 - Hyperlipidemia, unspecified Status: Chronic Assessment and Plan: LFTs wnl * Continue with statin (5) Chronic anemia: Code(s): D64.9 - Anemia, unspecified Status: Chronic Assessment and Plan: Hgb 8.0 this morning. No evidence of acute blood loss. Asymptomatic. Normocytic. On ASA and plavix * Stool occult ordered * Continue to monitor daily for now (6) History of multiple cerebrovascular accidents (CVAs): Code(s): Z86.73 - Personal history of transient ischemic attack (TIA), and cerebral infarction without residual deficits Status: Acute Assessment and Plan: Multiple previous strokes. With apparent residual deficits to left side * Continue ASA and plavix for now * Monitor * PT/OT (7) Seizure disorder as sequela of cerebrovascular accident: Code(s): I69.398 - Other sequelae of cerebral infarction; G40.909 - Epilepsy, unspecified, not intractable, without status epilepticus Status: Acute Assessment and Plan: No acute issues * Continue with Keppra and check level (8) Depression: Code(s): F32.9 - Major depressive disorder, single episode, unspecified Status: Chronic Assessment and Plan: * continue with Prozac (9) CKD (chronic kidney disease): Code(s): N18.9 - Chronic kidney disease, unspecified Status: Acute Assessment and Plan: Creatinine was 2.7 today and appears baseline around 2.0-2.5 from 11/2019-05/2020. Secondary to dehydration/poor PO intake likely. * Monitor closely * Will stop IVF as to not volume overload and he is tolerating PO well now (10) Hypertension: Code(s): I10 - Essential (primary) hypertension Status: Chronic Assessment and Plan: BP 170s sys this morning prior to meds * Continue with home antihypertensives
--- NOTE | 2020-06-30 08:38 | PM.IMPN ---
Progress Note: A&P Assessment and Plan (1) UTI (urinary tract infection): Code(s): N39.0 - Urinary tract infection, site not specified Status: Acute Assessment and Plan: UA suspcious for UTI; patient experiencing dysuria. Urine cultures are pending. AMS appears to have improved overnight with abx Continue Rocephin which was started from the ER Tailor antibiotics to cultures Monitor (2) Effusion, pericardium: Code(s): I31.3 - Pericardial effusion (noninflammatory) Status: Acute Assessment and Plan: Moderate as evident on CT abd/pelvis. Cardiology has been consulted by ED; appreciate recommendations. Appears to be hemodynamically stable without compromise. Await further recommendations from Cardiology Consider Echo in future; OP? (3) Insulin dependent diabetes mellitus: Code(s): E11.9 - Type 2 diabetes mellitus without complications; Z79.4 - long term care pharmacist (current) use of insulin Status: Chronic Assessment and Plan: Patient has insulin pump. Brittle diabetic. It has been arranged with Nursing to allow basal rate from pump with correctional insulin administered by nursing. BGL in 300s today. A1c 7.5 this stay. Continue basal insulin via pump Accuchecks ACHS, hypoglycemia protocol, correctional insulin, diabetic diet Monitor closely (4) Hyperlipidemia: Code(s): E78.5 - Hyperlipidemia, unspecified Status: Chronic Assessment and Plan: LFTs wnl Continue with statin (5) Chronic anemia: Code(s): D64.9 - Anemia, unspecified Status: Chronic Assessment and Plan: Hgb 8.0 this morning. No evidence of acute blood loss. Asymptomatic. Normocytic. On ASA and plavix Stool occult ordered Continue to monitor daily for now (6) History of multiple cerebrovascular accidents (CVAs): Code(s): Z86.73 - Personal history of transient ischemic attack (TIA), and cerebral infarction without residual deficits Status: Acute Assessment and Plan: Multiple previous strokes. With apparent residual deficits to left side Continue ASA and plavix for now Monitor PT/OT (7) Seizure disorder as sequela of cerebrovascular accident: Code(s): I69.398 - Other sequelae of cerebral infarction; G40.909 - Epilepsy, unspecified, not intractable, without status epilepticus Status: Acute Assessment and Plan: No acute issues Continue with Keppra and check level (8) Depression: Code(s): F32.9 - Major depressive disorder, single episode, unspecified Status: Chronic Assessment and Plan: continue with Prozac (9) CKD (chronic kidney disease): Code(s): N18.9 - Chronic kidney disease, unspecified Status: Acute Assessment and Plan: Creatinine was 2.7 today and appears baseline around 2.0-2.5 from 11/2019-05/2020. Secondary to dehydration/poor PO intake likely. Monitor closely Will stop IVF as to not volume overload and he is tolerating PO well now (10) Hypertension: Code(s): I10 - Essential (primary) hypertension Status: Chronic Assessment and Plan: BP 170s sys this morning prior to meds Continue with home antihypertensives (11) Fracture of right ankle, lateral malleolus: Qualifiers: Encounter type: initial encounter Fracture type: closed Fracture alignment: displaced Qualified Code(s): S82.61XA - Displaced fracture of lateral malleolus of right fibula, initial encounter for closed fracture Code(s): S82.61XA - Displaced fracture of lateral malleolus of right fibula, initial encounter for
[2020-06-30] MEDS: INSULIN ASPART (*BKC) 100 UNITS/ML SUB-Q ×2 (08:40→15:09)
[2020-06-30] MEDS: ASPIRIN 325 MG TABLET PO (08:41)
[2020-06-30] MEDS: ROSUVASTATIN 10 MG TABLET PO (08:41)
[2020-06-30] MEDS: allopurinoL 100 MG TABLET PO (08:41)
[2020-06-30] MEDS: hydrALAZINE HCL 50 MG TABLET PO ×2 (08:42→12:56)
[2020-06-30] MEDS: levETIRAcetam 500 MG TABLET PO ×2 (08:42→16:46)
[2020-06-30] MEDS: FLUoxetine HCL 20 MG CAPSULE PO (08:43)
[2020-06-30] MEDS: carvediloL 25 MG TABLET PO ×2 (08:43→21:10)
[2020-06-30 12:47] LABS: Glucose Point of Care 415 (65-105)
--- NOTE | 2020-06-30 12:51 | WPDCN ---
Assessment and Plan Assessment and plan (1) Effusion, pericardium: Code(s): I31.3 - Pericardial effusion (noninflammatory) Status: Acute (2) Altered mental status: Qualifiers: Altered mental status type: unspecified Qualified Code(s): R41.82 - Altered mental status, unspecified Code(s): R41.82 - Altered mental status, unspecified Status: Acute (3) UTI (urinary tract infection): Code(s): N39.0 - Urinary tract infection, site not specified Status: Acute (4) Hypertension: Code(s): I10 - Essential (primary) hypertension Status: Chronic (5) CKD (chronic kidney disease) stage 3, GFR 30-59 ml/min: Code(s): N18.3 - Chronic kidney disease, stage 3 (moderate) Status: Acute (6) Seizure disorder as sequela of cerebrovascular accident: Code(s): I69.398 - Other sequelae of cerebral infarction; G40.909 - Epilepsy, unspecified, not intractable, without status epilepticus Status: Acute Assessment and Plan: This unfortunate patient was incidentally found to have a moderate pericardial effusion by CT scan. No evidence of tamponade. No evidence of acute viral pericarditis and that there is been no fever, chest pain, rub, or EKG changes. Sed rate was high at 88 but that may be due to the UTI. This does not appear to be secondary to heart failure and there is no history of any connective tissue disease. His hypothyroidism is controlled, so not the culprit. Hydralazine can cause drug-induced lupus and pericardial effusion, and also a vasculitis (which could account for the patient's progressive renal deterioration), so it would be prudent to stop this hydralazine and evaluate further with anti-histone antibody test and an antineutrophil cytoplasmic antibody (ANCA) test. Another etiology for the the pericardial effusion may be his progressive renal insufficiency. Recommendations: Echo tomorrow then okay for discharge Will follow-up in the office for another echo in about 6 weeks to monitor the effusion Rheumatoid factor, NANCY, antihistone antibody, ANCA test DC hydralazine Use amlodipine for his HTN; can add clonidine if needed. No need for specific treatment (colchicine or NSAIA, etc) at this time. [facility] Data of Consult Date/Time: 06/30/20 12:51 Requesting Physician: Isaak Lopez PA-C Primary Care Provider: Penny Vergara, DO Consult Narrative Narrative: Date of service: 06/30/2020 Cliff Call is a 70 year old male Who were asked to see for our advice and opinion regarding his pericardial effusion, in consultation. The patient is usually followed by Dr. Pa for his hypertension, hyperlipidemia, and history of strokes. He has left-sided hemiparesis. The patient was admitted yesterday through the emergency room with worsening mental status. He was found to have a UTI. A CT of the abdomen and pelvis, for microscopic hematuria, showed as an incidental finding a moderate pericardial effusion. His echo in October 2019 showed an EF of 60-65%, LVH, diastolic dysfunction, mild valve disease but no evidence of effusion. He has had no fevers. No complaints of chest pain Or SOB. He does have chronic kidney disease which has progressed over the summer. No history of any connective tissue disease or thyroid problems. No CHF. The patient has a implantable loop recorder looking for evidence of PAF; he had has had some atrial tachycardia noted. I am unable to obtain much information from the patient because of his altered mental status but his was available and history was obtained from EMR also. Review of Systems Review of Systems: Narrative: Review of systems obtained from the patient, his and EMR. Typically the patient gets around in a wheelchair; he can use a quad cane with assistance. He nee
[2020-06-30] MEDS: INSULIN ASPART (*BKC) 100 UNITS/ML 10 UNITS SUB-Q (12:55)
[2020-06-30 15:00] LABS: Glucose Point of Care 371 (65-105)
[2020-06-30] MEDS: INSULIN ASPART (*BKC) 100 UNITS/ML 8 UNITS SUB-Q (17:05)
[2020-06-30 17:07] LABS: Rheumatoid Factor < 8.6 IU/ML (<12)
[2020-06-30 18:31] LABS: Glucose Point of Care 288 (65-105)
[2020-06-30] MEDS: CLOPIDOGREL BISULFATE 75 MG TABLET PO (21:10)
[2020-06-30] MEDS: guanFACINE HCL 1 MG TABLET PO (21:11)
[2020-06-30 21:22] LABS: Glucose Point of Care 372 (65-105)
[2020-07-01] VITALS (11 sets, daily range): BP systolic 124–139; BP diastolic 55–57; PULSE 60–74; RESP 16–20; TEMP 35.9–36.7; O2SAT 98–100
--- NOTE | 2020-07-01 | ECHO_ITS ---
Patient Info Name: Cliff Call Age: 70 years : 1950 Gender: Male Ht: 67 in Wt: 166 lbs BSA: 1.90 m2 HR: 65 bpm BP: 126 / 57 mmHg Heart Rhythm: Sinus Rhythm Technical Quality: Good Exam Date: 07/01/2020 2:28 PM Exam Location: [facility] Patient Status: Inpatient Admit Date: 06/29/2020 Staff Ordering Physician: Isaak Lopez PA-C Foot Tender: Murali Molina RDCS Attending Provider: Isaak Lopez PA-C Referring Physician: John MCKEON; Exam Type: CA echo doppler color flow Study Info Indications I31.3 - Pericardial effusion (noninflammatory) Complete two-dimensional, color flow and Doppler transthoracic echocardiogram is performed. History/Risk Factors Pericardial effusion on CT; CKD3, DM2, HTN, AMS 2/2 UTI. Summary 1. Complete two-dimensional, color flow and Doppler transthoracic echocardiogram is performed. 2. Normal LV size, moderate LVH, normal LV systolic function, EF 60-65%; grade 1 diastolic dysfunction. Mild left atrial enlargement. Normal mitral structure, trivial MR. Aortic valve appears mildly calcified, no hemodynamically significant stenosis by Doppler. Trivial AI. Trace TR, unable to assess RVSP due to inadequate TR jet velocity. Small to medium size circumferential pericardial effusion, no echocardiographic evidence of tamponade. Left Ventricle Left ventricular systolic function is normal, estimated at 60-65%. There is moderately increased left ventricular wall thickness. The left ventricular diastolic function is grade I diastolic dysfunction. Right Ventricle Right ventricular chamber dimension is normal. Right ventricular systolic function is normal. Left Atria Left atrial chamber dimension is mildly enlarged. Right Atria Right atrial chamber dimension is normal. Aortic Valve There is trace aortic valve regurgitation. There is mild aortic valve calcification. Pulmonic Valve The pulmonic valve is not well visualized. Mitral Valve The mitral valve has normal leaflets. There is trace mitral valve regurgitation. Tricuspid Valve The tricuspid valve leaflets are normal. There is trace tricuspid valve regurgitation. Pericardium/Pleural There is small circumferential pericardial effusion. Aorta The prox ascending aorta size is normal. Left Ventricular Outflow Tract Name Value Normal LVOT 2D LVOT Diameter 2.3 cm LVOT Doppler LVOT Peak Gradient 3 mmHg LVOT Mean Gradient 1 mmHg LVOT VTI 20 cm LVOT VTI/AV VTI Ratio 0.7 LVOT Stroke Volume 80 ml LVOT CO 5.1 l/min LVOT CI 2.7 l/min/m2 Mitral Valve Name Value Normal MV Doppler MV Decel [place] 271 cm/s2
[2020-07-01] MEDS: LEVOTHYROXINE SODIUM 75 MCG TABLET PO (06:29)
[2020-07-01] MEDS: LEVOTHYROXINE SODIUM 100 MCG TABLET PO (06:29)
[2020-07-01 06:41] LABS: Basophils Percent Auto 0.5 % (0.2-1.2); Eosinophils Absolute Auto 0.1 K/mm3 (0-0.3); Eosinophils Percent Auto 1.5 % (0-4.4); Hematocrit 22.6 % (42.0-52.0); Hemoglobin 7.6 g/dL (14.0-18.0); Immature Granulocyte Absolute 0.07 K/mm3 (0.00-0.031); Immature Granulocyte Percent A 0.9 % (0-0.5); Lymphocytes Absolute Auto 1.29 K/mm3 (0.9-3.2); Lymphocytes Percent Auto 16.3 % (18.3-44.2); Mean Corpuscular HGB Conc 33.6 g/dl (32-36); Mean Corpuscular Hemoglobin 29.8 pg (26-34); Mean Corpuscular Volume 88.6 fl (80-100); Mean Platelet Volume 9.9 fl (7.4-10.4); Monocytes Absolute Auto 1.1 K/mm3 (0.1-0.6); Monocytes Percent Auto 14.1 % (2.6-8.5); Neutrophils Absolute Auto 5.3 K/mm3 (1.3-6.7); Neutrophils Percent Auto 66.7 % (45.5-73.1); Platelet Count Result 265 k/mm3 (150-375); Red Blood Count 2.55 M/mm3 (4.6-6.20); Red Cell Distribution Width 12.7 % (11.5-14.5); White Blood Count 7.9 K/mm3 (4.5-10.0)
[2020-07-01 06:54] LABS: Anion Gap 6 mmol/L (8-16); Blood Urea Nitrogen 45 mg/dL (9-20); Calcium 7.6 mg/dL (8.4-10.2); Carbon Dioxide 24 mmol/L (22-30); Chloride 104 mmol/L (98-107); Estimated CRCL calculation 21 ml/min; Estimated Glomerular Filt Rate 23; Glucose 365 mg/dL (75-110); Magnesium 1.6 mg/dL (1.6-2.3); Sodium 134 mmol/L (137-145)
[2020-07-01 07:48] LABS: Glucose Point of Care 366 (65-105)
[2020-07-01] MEDS: INSULIN ASPART (*BKC) 100 UNITS/ML 8 UNITS SUB-Q ×4 (08:02→21:27)
[2020-07-01] MEDS: INSULIN ASPART (*BKC) 100 UNITS/ML SUB-Q ×3 (08:03→16:57)
[2020-07-01] MEDS: carvediloL 25 MG TABLET PO ×2 (08:17→21:27)
[2020-07-01] MEDS: FLUoxetine HCL 20 MG CAPSULE PO (08:17)
[2020-07-01] MEDS: ROSUVASTATIN 10 MG TABLET PO (08:17)
[2020-07-01] MEDS: amLODIPine BESYLATE 5 MG TABLET 10 MG PO (08:18)
[2020-07-01] MEDS: allopurinoL 100 MG TABLET PO (08:18)
[2020-07-01] MEDS: ASPIRIN 325 MG TABLET PO (08:18)
[2020-07-01] MEDS: levETIRAcetam 500 MG TABLET PO ×2 (08:18→16:56)
--- NOTE | 2020-07-01 08:50 | PM.PNCARD ---
Subjective Date/time seen: Date of service:07/01/20 08:50 Interval history: Follow-up visit in this 70-year-old man found incidentally to have a pericardial effusion. Patient is known to be on hydralazine chronically which certainly could cause this and also has an element of renal insufficiency which also could be playing a role. The effusion is not hemodynamically embarassing . Echocardiographic evaluation ordered for this morning has yet to occur. Principle reason for admission was apparently mental status alteration and UTI which is clearly unrelated to this pericardial effusion. will await echocardiographic findings and follow-up p.r.n.. Follow up in our office with Dr. Pa will also be arranged Vince Moran MD [facility] Objective Data Vital Signs Vital Signs: Vital Signs - 24 hr 06/30/20 12:00 06/30/20 12:55 06/30/20 14:00 Temperature 36.5 C Pulse Rate 67 67 Respiratory Rate 15 Blood Pressure 144/56 H 119/58 L Pulse Oximetry 99 06/30/20 16:00 06/30/20 20:00 06/30/20 21:07 Temperature 36.2 C L Pulse Rate 63 62 66 Respiratory Rate 16 Blood Pressure 150/58 H Pulse Oximetry 100 06/30/20 21:10 07/01/20 00:00 07/01/20 04:00 Temperature Pulse Rate 66 63 68 Respiratory Rate Blood Pressure Pulse Oximetry 07/01/20 05:54 07/01/20 08:17 Temperature 36.4 C Pulse Rate 68 74 Respiratory Rate 16 Blood Pressure 139/57 L Pulse Oximetry 100 Intake/Output Intake/Output: Intake & Output 06/28/20 06/29/20 06/30/20 07/01/20 23:59 23:59 23:59 23:59 Intake Total 50 2608 340 Output Total 200 Balance -150 2608 340 Meds/Results Medications: Active Medications Generic Name Dose Route Start Last Admin Trade Name Freq PRN Reason Stop Dose Admin Acetaminophen 650 mg 06/29/20 19:05 Tylenol Tablet PO Q4H PRN Mild Pain (1-3) or Fever Acetaminophen 650 mg 06/29/20 21:49 Tylenol Tablet PO Q8H PRN pain Allopurinol 100 mg 06/30/20 08:00 07/01/20 08:18 Zyloprim PO 100 mg DAILY@0800 CHIP Administration Amlodipine Besylate 10 mg 07/01/20 09:00 07/01/20 08:18 Norvasc PO 10 mg QAM CHIP Administration Aspirin 325 mg 06/30/20 08:00 07/01/20 08:18 Aspirin PO 325 mg DAILY@0800 CHIP Administration Carvedilol 25 mg 06/30/20 09:00 07/01/20 08:17 Coreg PO 25 mg Q12HR CHIP Administration Clopidogrel Bisulfate 75 mg 06/29/20 22:05 06/30/20 21:10 Plavix PO 75 mg HS CHIP Administration Dextrose 12.5 gm 06/29/20 21:48 Dextrose 50% Syringe IV PUSH PRN PRN Hypoglycemia Protocol Docusate Sodium 100 mg 06/30/20 08:40 Colace Capsule PO Q12H PRN Constipation Fluoxetine HCl 20 mg 06/30/20 09:00 07/01/20 08:17 Prozac PO 20 mg DAILY CHIP Administration Glucagon 1 mg 06/29/20 21:48 Glucagon For Inj IM PRN PRN Hypoglycemia Protocol Glucose 15 gm 06/29/20 21:48 Glutose 15 PO PRN PRN Hypoglycemia Protocol Guanfacine HCl 1 mg 06/29/20 22:10 06/30/20 21:11 Tenex PO 1 mg HS CHIP Administration Ceftriaxone Sodium/Dextrose 1 gm in 50 mls @ 100 mls/hr 06/30/20 18:00 06/30/20 17:36 Rocephin 1 Gm/D5w 50 Ml IVPB Infused Q24H CHIP Infusion Dextrose 1,000 mls @ 100 mls/hr 06/29/20 21:48 Dextrose 5% 1,000 Ml IVPB PRN PRN Hypoglycemia Protocol Insulin Aspart 8 units 06/30/20 17:00 07/01/20 08:02 Novolog SUB-Q 8 units TIDWM CHIP Administration Insulin Aspart 2 - 5 units 06/30/20 17:00 07/01/20 08:03 Novolog SUB-Q 5 units TIDWM CHIP Administration Protocol Levetiracetam 500 mg 06/30/20 09:00 07/01/20 08:18 Keppra Tablet PO 500 mg BID CHIP Administration Levothyroxine Sodium 100 mcg 06/30/20 06:30 07/01/20 06:29 Synthroid PO 100 mcg DAILY@0630 CHIP Administration Levothyroxine Sodium 75 mcg 06/30/20 06:30 07/01/20 06:29
--- NOTE | 2020-07-01 10:52 | P.PNIM_ITS ---
Progress Note: A&P Assessment and Plan (1) UTI (urinary tract infection): Code(s): N39.0 - Urinary tract infection, site not specified Status: Acute Assessment and Plan: UA and CT suspicious for UTI; patient experiencing dysuria and hematuria, which was just revealed to me today. Urine cultures are growing proteus mirabilis; awaiting sensitivities. AMS appears to have resolved. * Continue Rocephin which was started from the ER * Tailor antibiotics to sensitivities * Monitor (2) Effusion, pericardium: Code(s): I31.3 - Pericardial effusion (noninflammatory) Status: Acute Assessment and Plan: Moderate as evident on CT abd/pelvis. Cardiology has been consulted by ED; appreciate recommendations. Appears to be hemodynamically stable without compromise. * Await further recommendations from Cardiology * Echo ordered for today * Will need further f/u as outpatient once discharged as well (3) Insulin dependent diabetes mellitus: Code(s): E11.9 - Type 2 diabetes mellitus without complications; Z79.4 - [facility] (current) use of insulin Status: Chronic Assessment and Plan: Patient has insulin pump. Brittle diabetic. Nursing reported safety concerns with insulin pump and it has been removed. requests he not be on basal-b olus regimen with lantus and she claims lantus drops his sugars too low. She is agreeable with mealtime novolog bolus along with SSI. Typically runs 200-300s per . BGL in 300s today. A1c 7.5 this stay. * Continue Novolog 8 u TIDWM, as well as, correctional insulin * Accuchecks ACHS, hypoglycemia protocol, correctional insulin, diabetic diet * Monitor closely (4) Hyperlipidemia: Code(s): E78.5 - Hyperlipidemia, unspecified Status: Chronic Assessment and Plan: LFTs wnl * Continue with statin (5) Chronic anemia: Code(s): D64.9 - Anemia, unspecified Status: Chronic Assessment and Plan: Hgb 7.6 this morning. Patient's just revealed that his main reason for presenting to hospital was gross hematuria along with lethargy/AMS. ASA and plavix were continued on admission. Asymptomatic. Normocytic. Possibly acute blood loss on chronic anemia given his gross hematuria * Stool occult, iron panel, vit b12/folate ordered * Hold ASA and plavix tentatively until hematuria resolves * H&H this afternoon * transfuse as needed * Continue to monitor daily (6) History of multiple cerebrovascular accidents (CVAs): Code(s): Z86.73 - Personal history of transient ischemic attack (TIA), and cerebral infarction without residual deficits Status: Acute Assessment and Plan: Multiple previous strokes. With apparent residual deficits to left side * Hold ASA and plavix for now, see above * Monitor * PT/OT (7) Seizure disorder as sequela of cerebrovascular accident: Code(s): I69.398 - Other sequelae of cerebral infarction; G40.909 - Epilepsy, un specified, not intractable, without status epilepticus Status: Acute Assessment and Plan: No acute issues * Continue with Keppra and check level (8) Depression: Code(s): F32.9 - Major depressive disorder, single episode, unspecified Status: Chronic Assessment and Plan: * continue with Prozac (9) CKD (chronic
--- NOTE | 2020-07-01 10:52 | PM.IMPN ---
Progress Note: A&P Assessment and Plan (1) UTI (urinary tract infection): Code(s): N39.0 - Urinary tract infection, site not specified Status: Acute Assessment and Plan: UA and CT suspicious for UTI; patient experiencing dysuria and hematuria, which was just revealed to me today. Urine cultures are growing proteus mirabilis; awaiting sensitivities. AMS appears to have resolved. Continue Rocephin which was started from the ER Tailor antibiotics to sensitivities Monitor (2) Effusion, pericardium: Code(s): I31.3 - Pericardial effusion (noninflammatory) Status: Acute Assessment and Plan: Moderate as evident on CT abd/pelvis. Cardiology has been consulted by ED; appreciate recommendations. Appears to be hemodynamically stable without compromise. Await further recommendations from Cardiology Echo ordered for today Will need further f/u as outpatient once discharged as well (3) Insulin dependent diabetes mellitus: Code(s): E11.9 - Type 2 diabetes mellitus without complications; Z79.4 - longterm (current) use of insulin Status: Chronic Assessment and Plan: Patient has insulin pump. Brittle diabetic. Nursing reported safety concerns with insulin pump and it has been removed. requests he not be on basal-bolus regimen with lantus and she claims lantus drops his sugars too low. She is agreeable with mealtime novolog bolus along with SSI. Typically runs 200-300s per . BGL in 300s today. A1c 7.5 this stay. Continue Novolog 8 u TIDWM, as well as, correctional insulin Accuchecks ACHS, hypoglycemia protocol, correctional insulin, diabetic diet Monitor closely (4) Hyperlipidemia: Code(s): E78.5 - Hyperlipidemia, unspecified Status: Chronic Assessment and Plan: LFTs wnl Continue with statin (5) Chronic anemia: Code(s): D64.9 - Anemia, unspecified Status: Chronic Assessment and Plan: Hgb 7.6 this morning. Patient's just revealed that his main reason for presenting to hospital was gross hematuria along with lethargy/AMS. ASA and plavix were continued on admission. Asymptomatic. Normocytic. Possibly acute blood loss on chronic anemia given his gross hematuria Stool occult, iron panel, vit b12/folate ordered Hold ASA and plavix tentatively until hematuria resolves H&H this afternoon transfuse as needed Continue to monitor daily (6) History of multiple cerebrovascular accidents (CVAs): Code(s): Z86.73 - Personal history of transient ischemic attack (TIA), and cerebral infarction without residual deficits Status: Acute Assessment and Plan: Multiple previous strokes. With apparent residual deficits to left side Hold ASA and plavix for now, see above Monitor PT/OT (7) Seizure disorder as sequela of cerebrovascular accident: Code(s): I69.398 - Other sequelae of cerebral infarction; G40.909 - Epilepsy, unspecified, not intractable, without status epilepticus Status: Acute Assessment and Plan: No acute issues Continue with Keppra and check level (8) Depression: Code(s): F32.9 - Major depressive disorder, single episode, unspecified Status: Chronic Assessment and Plan: continue with Prozac (9) CKD (chronic kidney disease): Code(s): N18.9 - Chronic kidney disease, unspecified Status: Acute Assessment and Plan: Creatinine was 2.7 today and appears baseline around 2.0-2.5 from 11/2019-05/2020. Secondary to dehydration/poor PO intake likely. Monitor closely Consider IVF if no improvement (10) Hypertension: Co
[2020-07-01 11:29] LABS: Glucose Point of Care 383 (65-105)
[2020-07-01 15:21] LABS: Hematocrit 23.7 % (42.0-52.0)
[2020-07-01 16:43] LABS: Iron 41 ug/dL (49-181)
[2020-07-01 16:51] LABS: Glucose Point of Care 308 (65-105)
[2020-07-01 16:52] LABS: Percent Iron Saturation 18 % (20-50)
[2020-07-01 17:24] LABS: Folic Acid 8.6 ng/mL (2.76->20)
[2020-07-01 21:06] LABS: Glucose Point of Care 339 (65-105)
[2020-07-01] MEDS: guanFACINE HCL 1 MG TABLET PO (21:27)
[2020-07-02] VITALS (7 sets, daily range): BP systolic 138–140; BP diastolic 52–54; PULSE 70–75; RESP 20–21; TEMP 36.3–36.7; O2SAT 99–100
[2020-07-02 00:07] LABS: Glucose Point of Care 262 (65-105)
[2020-07-02 05:43] LABS: Hematocrit 22.8 % (42.0-52.0); Hemoglobin 7.8 g/dL (14.0-18.0); Mean Corpuscular HGB Conc 34.2 g/dl (32-36); Mean Corpuscular Hemoglobin 29.9 pg (26-34); Mean Corpuscular Volume 87.4 fl (80-100); Mean Platelet Volume 9.4 fl (7.4-10.4); Platelet Count Result 261 k/mm3 (150-375); Red Blood Count 2.61 M/mm3 (4.6-6.20); Red Cell Distribution Width 12.5 % (11.5-14.5); White Blood Count 7.9 K/mm3 (4.5-10.0)
[2020-07-02 06:10] LABS: Anion Gap 5 mmol/L (8-16); Blood Urea Nitrogen 46 mg/dL (9-20); Calcium 7.6 mg/dL (8.4-10.2); Carbon Dioxide 24 mmol/L (22-30); Chloride 105 mmol/L (98-107); Estimated CRCL calculation 22 ml/min; Estimated Glomerular Filt Rate 24; Glucose 317 mg/dL (75-110); Magnesium 1.6 mg/dL (1.6-2.3); Potassium 4.3 mmol/L (3.4-5.0); Sodium 134 mmol/L (137-145)
[2020-07-02] MEDS: LEVOTHYROXINE SODIUM 100 MCG TABLET PO (06:19)
[2020-07-02] MEDS: LEVOTHYROXINE SODIUM 75 MCG TABLET PO (06:19)
[2020-07-02 07:44] LABS: Glucose Point of Care 355 (65-105)
[2020-07-02] MEDS: INSULIN ASPART (*BKC) 100 UNITS/ML 8 UNITS SUB-Q ×2 (07:55→11:16)
[2020-07-02] MEDS: INSULIN ASPART (*BKC) 100 UNITS/ML SUB-Q ×2 (07:56→11:17)
[2020-07-02] MEDS: amLODIPine BESYLATE 5 MG TABLET 10 MG PO (07:58)
[2020-07-02] MEDS: FLUoxetine HCL 20 MG CAPSULE PO (07:58)
[2020-07-02] MEDS: allopurinoL 100 MG TABLET PO (07:58)
[2020-07-02] MEDS: ROSUVASTATIN 10 MG TABLET PO (07:59)
[2020-07-02] MEDS: levETIRAcetam 500 MG TABLET PO (08:02)
[2020-07-02] MEDS: carvediloL 25 MG TABLET PO (08:02)
[2020-07-02 10:22] LABS: IFOB Positive Control Positive; Immunochemical Fecal Occult Bl Negative (N)
[2020-07-02 11:15] LABS: Glucose Point of Care 358 (65-105)
--- NOTE | 2020-07-02 14:19 | PM.DS ---
DS: Admitting Diagnosis Admitting Diagnosis Admitting Diagnosis: altered mental status, uti DS: Discharge Diagnosis Discharge Diagnosis (1) UTI (urinary tract infection): Code(s): N39.0 - Urinary tract infection, site not specified Status: Acute Assessment and Plan: UA and CT suspicious for UTI; patient experiencing dysuria and hematuria. Urine cultures are growing proteus mirabilis and sensitivities just returned. Family at bedside and state that he is back to his baseline other than his tiredness and falling asleep most of the day. Will discharge him on Cefdinir for a few more days and probiotic. Follow up with PCP in 1 week. (2) Effusion, pericardium: Code(s): I31.3 - Pericardial effusion (noninflammatory) Status: Acute Assessment and Plan: Moderate as evident on CT abd/pelvis. Cardiology has been consulted by ED; appreciate recommendations. Appears to be hemodynamically stable without compromise. Echo showed small to medium pericardial effusion with no signs of tamponode. Cardiology feels comfortable with discharge home and follow up in the office in 1 month and have a limited cardiac echo for further evaluation. They are discontinuing Hydralazine. Patient is otherwise asymptomatic. (3) Insulin dependent diabetes mellitus: Code(s): E11.9 - Type 2 diabetes mellitus without complications; Z79.4 - senior care (current) use of insulin Status: Chronic Assessment and Plan: Patient has insulin pump. Brittle diabetic. Nursing reported safety concerns with insulin pump and it has been removed. requests he not be on basal-bolus regimen with lantus and she claims lantus drops his sugars too low. She is agreeable with mealtime novolog bolus along with SSI. Typically runs 200-300s per . BGL in 300s today. A1c 7.5 this stay. Continue home medications, check glucose and follow up with PCP for adjustments. (4) Hyperlipidemia: Code(s): E78.5 - Hyperlipidemia, unspecified Status: Chronic Assessment and Plan: LFTs wnl Continue with statin (5) Chronic anemia: Code(s): D64.9 - Anemia, unspecified Status: Chronic Assessment and Plan: Hgb 7.6 this morning. Patient's just revealed that his main reason for presenting to hospital was gross hematuria along with lethargy/AMS. ASA and plavix were continued on admission. Asymptomatic. Normocytic. Possibly acute blood loss on chronic anemia given his gross hematuria Stool occult was negative. Iron panel showing anemia of chronic disease. Normal Vit b12/folate Cardiology will restart ASA and plavix Will recheck CBC in 1 week and follow up with PCP. No signs of acute bleeding at this time. (6) History of multiple cerebrovascular accidents (CVAs): Code(s): Z86.73 - Personal history of transient ischemic attack (TIA), and cerebral infarction without residual deficits Status: Acute Assessment and Plan: Multiple previous strokes. With apparent residual deficits to left side Continue ASA and plavix per cardiology recommendations Discharge with Home Health. (7) Seizure disorder as sequela of cerebrovascular accident: Code(s): I69.398 - Other sequelae of cerebral infarction; G40.909 - Epilepsy, unspecified, not intractable, without status epilepticus Status: Acute Assessment and Plan: No acute issues Continue with Keppra (8) Depression: Code(s): F32.9 - Major depressive disorder, single episode, unspecified Status: Chronic Assessment and Plan: continue with Prozac (9) CKD (chronic kidney disease): Code(s): N18.9
--- NOTE | 2020-07-02 14:38 | PM.PNCARD ---
Progress Note: A&P Assessment and Plan (1) Effusion, pericardium: Code(s): I31.3 - Pericardial effusion (noninflammatory) Status: Acute Assessment and Plan: Incidentally found to have a moderate pericardial effusion by CT scan. No evidence of tamponade. No evidence of acute viral pericarditis and that there is been no fever, chest pain, rub, or EKG changes. Sed rate was high at 88 but that may be due to the UTI. This does not appear to be secondary to heart failure and there is no history of any connective tissue disease. His hypothyroidism is controlled, so not the culprit. Echocardiogram 07/01/2020: Normal LV size, moderate LVH, normal LV systolic function, EF 60-65%; grade 1 diastolic dysfunction. Mild left atrial enlargement. Normal mitral structure, trivial MR. Aortic valve appears mildly calcified, no hemodynamically significant stenosis by Doppler. Trivial AI. Trace TR, unable to assess RVSP due to inadequate TR jet velocity. Small to medium size circumferential pericardial effusion, no echocardiographic evidence of tamponade. Stop and hydralazine. (2) Altered mental status: Qualifiers: Altered mental status type: unspecified Qualified Code(s): R41.82 - Altered mental status, unspecified Code(s): R41.82 - Altered mental status, unspecified Status: Acute Assessment and Plan: Improved with treatment of UTI and improvement in renal function. (3) UTI (urinary tract infection): Code(s): N39.0 - Urinary tract infection, site not specified Status: Acute Assessment and Plan: Treatment per hospitalist. (4) Hypertension: Qualifiers: Hypertension type: essential hypertension Qualified Code(s): I10 - Essential (primary) hypertension Code(s): I10 - Essential (primary) hypertension Status: Chronic Assessment and Plan: At goal. Continue carvedilol and amlodipine. (5) CKD (chronic kidney disease) stage 3, GFR 30-59 ml/min: Code(s): N18.3 - Chronic kidney disease, stage 3 (moderate) Status: Acute Assessment and Plan: Improving. . Will monitor as an outpatient. (6) Seizure disorder as sequela of cerebrovascular accident: Code(s): I69.398 - Other sequelae of cerebral infarction; G40.909 - Epilepsy, unspecified, not intractable, without status epilepticus Status: Acute Assessment and Plan: No seizures noted while he was in the hospital. Continue Keppra. Additional Plan OK to discharge from cardiac standpoint. See discharge instructions for follow-up. Plan discussed with Dr. Pa [id number] 07/02/2020 Subjective Date/time seen: 07/02/20 14:38 Interval history: Follow-up for: incidentally found pericardial effusion. Principle reason for admission was apparently mental status alteration and UTI. Date of service: 07/02/2020 Subjective: denied chest discomfort, shortness of breath, lightheadedness or palpitations. Some soreness in the left forearm hematoma. Review of Systems Constitutional: Constitutional: Denies chills, Denies night sweats and Reports weakness Eyes: Eyes: Denies blurry vision ENT: Denies epistaxis Cardiovascular: Cardiovascular: Denies chest pain, Denies diaphoresis, Denies pedal edema, Denies leg edema, Denies lightheadedness and Denies dyspnea Respiratory: Respiratory: Denies cough and Denies dyspnea Gastrointestinal: Gastrointestinal: Denies abdominal pain Genitourinary: Genitourinary: Denies dysuria Musculoskeletal: Musculoskeletal: Reports abnormal gait ( left hemiparesis secondary to old stroke) and Denies back pain Integumentary/Breasts: Skin/Breast: Denies rash Neurologic: Reports Abnormal speech present ( slurred speech second
[2020-07-02 15:03] LABS: Hematocrit 21.8 % (42.0-52.0); Hemoglobin 7.5 g/dL (14.0-18.0)
[2020-07-03 14:27] LABS: Levetiracetam Keppra 25.7 mcg/mL (12.0-46.0)
[2020-07-03 22:03] LABS: Histone Antibody 2.2 U (<1.0)
[2020-07-05 12:47] LABS: ANCA Screen Negative (Negative)
== END 2020-07-02 16:20 | disposition home health service (06) | DRG 690 ==
LOC: ANHED 19:20 → ANH2MED 06-30 07:05
PROVIDERS: Internal Medicine Cardiovascular Disease; Nurse Practitioner; Physician Assistant; Admitting Provider Family Medicine; Emergency Provider Family Medicine; PCP Family Medicine; Visit Provider Physician Assistant
DX: N39.0 Urinary tract infection, site not specified (principal); I31.3 Pericardial effusion (noninflammatory); I69.354 Hemiplegia and hemiparesis following cerebral infarction affecting left non-dominant side; B96.4 Proteus (mirabilis) (morganii) as the cause of diseases classified elsewhere; I12.9 Hypertensive chronic kidney disease with stage 1 through stage 4 chronic kidney disease, or unspecified chronic kidney disease; E11.22 Type 2 diabetes mellitus with diabetic chronic kidney disease; N18.3 Chronic kidney disease, stage 3 (moderate); E11.21 Type 2 diabetes mellitus with diabetic nephropathy; R41.82 Altered mental status, unspecified; E03.9 Hypothyroidism, unspecified; E78.5 Hyperlipidemia, unspecified; I69.398 Other sequelae of cerebral infarction; G40.909 Epilepsy, unspecified, not intractable, without status epilepticus; D63.1 Anemia in chronic kidney disease; S82.61XD Displaced fracture of lateral malleolus of right fibula, subsequent encounter for closed fracture with routine healing; X58.XXXD Exposure to other specified factors, subsequent encounter; F17.220 Nicotine dependence, chewing tobacco, uncomplicated; I69.392 Facial weakness following cerebral infarction; F32.9 Major depressive disorder, single episode, unspecified; Z98.42 Cataract extraction status, left eye; Z98.41 Cataract extraction status, right eye; Z79.4 Long term (current) use of insulin; Z96.41 Presence of insulin pump (external) (internal)
CPT/HCPCS: 36415; 51701; 70450; 71045; 74176; 80048; 80053; 80177; 81001; 82274; 82607; 82728; 82746; 83036; 83516; 83540; 83550; 83735; 83880; 84443; 84484; 85014; 85018; 85025; 85027; 85610; 85652; 86021; 86038; 86430; 87077; 87086; 87088; 87186; 92523; 93005; 93306; 96365; 97110; 97162; 97166; 97530; 99285; A9270; J0696; J1815; J7030

== ENCOUNTER 2020-12-29 20:22 | Inpatient (IN) | payer MEDICARE, SELFPAY ==
--- NOTE | ~2020-12-29 | CT_ITS ---
EXAMINATION: CT brain wo con DATE: 12/29/2020 20:47 INDICATION: Confusion. TECHNIQUE: Computed tomography (CT) of the head was performed without intravenous contrast. The mA wa s adjusted according to patient size. Iterative reconstruction technique was employed. The dose-lengt h product was 681.00 mGy-cm. COMPARISON: Head CT 06/29/2020 FINDINGS: There is an old lacunar infarct in the may. There are old infarcts involving the bilateral basal ganglia and thalami. There is an old infarct involving the right frontal and parietal lobes. T here are scattered areas of low attenuation in the cerebral white matter. There is no intracranial he morrhage, acute infarction, or abnormal intracranial mass lesion. The ventricles are normal in size. There are likely changes of ocular lens replacement surgeries. There are old fracture deformities of the nasal bones. There is mild mucosal thickening in the paranasal sinuses. There is a small left mas toid effusion. IMPRESSION: 1. Multiple old infarcts in the brain. 2. Stable moderate nonspecific cerebral white matter disease, which likely represents chronic small v essel ischemic disease. Reviewed, dictated and finalized at location A. RETE STONE FINISHER IMPRESSION: 1. Multiple old infarcts in the brain. 2. Stable moderate nonspecific cerebral white matter disease, which likely repr esents chronic small vessel ischemic disease.
--- NOTE | ~2020-12-29 | XR_ITS ---
EXAMINATION: XR chest 1V portable DATE: 12/29/2020 20:51 INDICATION: Transient alteration of awareness. TECHNIQUE: A single frontal view of the chest was obtained. COMPARISON: Chest single view 06/29/2020 FINDINGS: There are patchy airspace opacities in left mid and lower lung zones. No pleural effusion o r pneumothorax. The heart size is normal. There is an electronic implant in left chest wall. IMPRESSION: 1. Patchy airspace opacities in left mid and lower lung zones, consistent with pneumonia. Reviewed, dictated and finalized at location A. RESS DEVELOPER
--- NOTE | ~2020-12-29 | XR_ITS ---
EXAMINATION: XR barium swallow modified EXAM DATE: 01/01/2021 13:53 INDICATION: Asp PNA, old CVA. Dysphagia. TECHNIQUE: Modified barium esophagram was performed by myself to administered fluoroscopy, in conjun ction with speech pathologist who administered barium in varying consistencies as per speech patholog ist documentation. This was recorded on tape. The DAP for this procedure was 7.0 Gycm2. FINDINGS: Oral stage: Reduced left labial closure. Pharyngeal phase: Reduced laryngeal elevation and tongue base retraction. Laryngeal penetration: Demonstrated mostly with uncontrolled thin liquids, mostly ejected. Aspiration: None. Laryngeal sensitivity: Present. IMPRESSION: Oral feedings recommended with limitations as per speech pathologist. Please refer to makenzie olea pathologist findings and specific feeding recommendations. Reviewed, dictated and finalized at location A. TY CULTURIST IMPRESSION: Oral feedings recommended with limitations as per speech pathologis t. Please refer to speech pathologist findings and specific feeding recommend ations.
--- NOTE | 2020-12-29 20:32 | ECG_ITS ---
Measurements Intervals [place] Rate: 82 P: 41 IN: 187 QRS: -16 QRSD: 94 T: 69 QT: 404 QTc: 472 Interpretive Statements SINUS RHYTHM DELAYED PRECORDIAL R/S TRANSITION BORDERLINE ST-T WAVE ABNORMALITY- HIGH LATERAL LEADS BORDERLINE ECG Electronically Signed On 12-30-2020 7:04:33 IN [employer] by Paddy Rose D.O.
--- NOTE | 2020-12-29 20:33 | ED.GENADULT ---
HPI - General Adult General Chief complaint: Altered Mental Status Stated complaint: AMS Time Seen by Provider: 12/29/20 20:26 Source: RN notes reviewed History of Present Illness HPI narrative: Patient presents to emergency department from home via EMS for altered mental status. initially called EMS because the patient was not eating and felt he was having a diabetic emergency. When EMS arrived the patient was noted to have a fever of 101 degrees with a blood sugar 135 patient currently is awake alert x1 in the room he currently denies any pain denies any cough abdominal pain nausea vomiting diarrhea or any other symptoms per the the patient's been having decreased urination and clumps in his urine Related Data Home Medications Medication Instructions Recorded Confirmed allopurinol [Zyloprim] 100 mg PO DAILY 10/26/19 09/04/20 aspirin 325 mg PO DAILY 10/26/19 09/04/20 carvedilol 25 mg PO BID 10/26/19 09/04/20 fluoxetine 20 mg PO DAILY 10/26/19 09/04/20 guanfacine 1 mg PO HS 10/26/19 09/04/20 levetiracetam 500 mg PO BID 10/26/19 09/04/20 levothyroxine 175 mcg PO DAILY 10/26/19 09/04/20 rosuvastatin 10 mg PO DAILY 10/26/19 09/04/20 clopidogrel 75 mg PO HS 06/29/20 09/04/20 insulin lispro 100 unit/mL 1 sliding scale dose SUBCUT 10/16/20 subcutaneous cartridge USEASDIRECTD risperidone microspheres 25 mg/2 25 mg IM Q14D 10/16/20 mL intramuscular susp,ext release Allergies Allergy/AdvReac Type Severity Reaction Status Date / Time No Known Allergies Allergy Verified 10/16/20 14:06 Review of Systems Review of Systems: Narrative: Gen.: Reports fever Eyes: Denies eye pain or visual change ENT: Denies congestion Respiratory: Denies shortness of breath or cough CV: Denies chest pain or palpitations GI: Denies abdominal pain nausea, emesis or diarrhea reports decreased urination: Clumps in urine Musculoskeletal: Denies back pain or muscle pain Neuro: Reports ulcer mental status Skin: Denies rash Except as documented, all other systems reviewed and negative [facility] Past Medical History Medical History (Updated 12/29/20 @ 22:35 by Braeden العلي DO) Chronic anemia CKD (chronic kidney disease) Stage III with creatinine currently at his baseline around 2.2 CVA (cerebral vascular accident) Hemorrhagic stroke in 2004, thrombotic stroke in 2014 resulting in left-sided hemiparesis and left facial droop, 3rd stroke 09/2018 in the left mid brain resulting in diplopia, right-sided weakness and double vision Depression Diabetic nephropathy Diabetic polyneuropathy History of BPH Hx of gout Hx of seizure disorder Hyperlipidemia Hypertension Hypothyroidism Insulin dependent diabetes mellitus On insulin pump. Patient's last hemoglobin A1c October 2018 was 7.[address] Surgical History Surgical History H/O cataract removal with insertion of prosthetic lens Bilateral History of shoulder surgery Right shoulder surgery to remove a bone spur Status post placement of implantable loop recorder December 2018 Family History Family History Father Diabetes mellitus Mother Family history of arthritis Other Family history of hearing loss Social History Social History Social History: The patient is a full code at this time. home is a durable power workers compensation defense attorney for healthcare.They have 2 children. 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 Patient continues to use chewing tobacco Tobacco type: smokeless tobacco Smokeless tobacco user: chewing tobacco Second hand tobacco smoke exposure: No Additional smoking assessment comments: chews tobacco daily Alcohol intake: current Drinks per week: 7 Substance use: unknown Substance use type: does not use Other substance usage details: chews tobacco Gender identity (if ve
[2020-12-29 20:35] VITALS: BP 137/53; PULSE 83; RESP 18; TEMP 37.7; O2SAT 94
[2020-12-29 20:46] LABS: Basophils Percent Auto 0.2 % (0.2-1.2); Eosinophils Absolute Auto 0.1 K/mm3 (0-0.3); Eosinophils Percent Auto 0.7 % (0-4.4); Hematocrit 24.4 % (42.0-52.0); Hemoglobin 8.2 g/dL (14.0-18.0); Immature Granulocyte Absolute 0.08 K/mm3 (0.00-0.031); Immature Granulocyte Percent A 0.5 % (0-0.5); Lymphocytes Absolute Auto 1.06 K/mm3 (0.9-3.2); Lymphocytes Percent Auto 6.3 % (18.3-44.2); Mean Corpuscular HGB Conc 33.6 g/dl (32-36); Mean Corpuscular Hemoglobin 30.4 pg (26-34); Mean Corpuscular Volume 90.4 fl (80-100); Mean Platelet Volume 8.8 fl (7.4-10.4); Monocytes Absolute Auto 2.4 K/mm3 (0.1-0.6); Monocytes Percent Auto 14.1 % (2.6-8.5); Neutrophils Absolute Auto 13.2 K/mm3 (1.3-6.7); Neutrophils Percent Auto 78.2 % (45.5-73.1); Platelet Count Result 289 k/mm3 (150-375); Red Cell Distribution Width 12.6 % (11.5-14.5); White Blood Count 16.8 K/mm3 (4.5-10.0)
[2020-12-29 20:56] LABS: INR 1.2; Prothrombin Time 15.4 Seconds (11.1-14.7)
[2020-12-29 20:58] LABS: Alanine Aminotransferase 12 U/L (4-50); Albumin Level 3.4 g/dL (3.5-5.1); Alkaline Phosphatase 101 U/L (38-126); Anion Gap 6 mmol/L (8-16); Aspartate Amino Transferase 18 U/L (17-59); Bilirubin,Total 0.4 mg/dL (0.2-1.3); Blood Urea Nitrogen 56 mg/dL (9-20); Calcium 8.2 mg/dL (8.4-10.2); Carbon Dioxide 26 mmol/L (22-30); Chloride 111 mmol/L (98-107); Estimated CRCL calculation 17 ml/min; Estimated Glomerular Filt Rate 18; Glucose 119 mg/dL (75-110); Potassium 4.6 mmol/L (3.4-5.0); Sodium 143 mmol/L (137-145)
[2020-12-29 20:59] LABS: Lactic Acid Reflex 0.6 mmol/L (0.7-2.1)
[2020-12-29] MEDS: SODIUM CHLORIDE 0.9% IV 1,000 ML 999 ML IV CONT (21:01)
[2020-12-29 21:47] LABS: Add Urine Microscopic? YES; Amorphous Sediment Urine Few; Appearance Urine Cloudy (Clear); Bacteria Urine 2+ /hpf; Bilirubin Urine Negative (Negative); Blood Urine 1+ (Negative); Color Urine Yellow (Yellow); Glucose Urine UA Negative (Negative); Ketones Urine Negative (Negative); Leukocyte Esterase Ur 3+ LEU/UL (Negative); Mucus Urine Rare /lpf; Nitrate Urine Negative (Negative); Protein Urine 2+ mg/dL (Negative); RBC Urine 21-50 /hpf (0-2); Specific Grav Ur 1.013 (1.001-1.035); Urobilinogen Urine Negative mg/dL (<2.0); WBC Clumps Urine Present /HPF; WBC Urine >75 /hpf
[2020-12-29 22:08] VITALS: BP 117/59; PULSE 80; RESP 18; O2SAT 94
--- NOTE | 2020-12-29 22:50 | PM.IMHP ---
H&P: HPI History of Present Illness Date/Time: 12/29/20 22:50 Chief Complaint: Altered mental status today at home++ Narrative: This is a 70-year-old diabetic male with known left-sided neglect and paralysis following a stroke in 2014 who presented to the hospital secondary to acute altered mental status. The patient's was at bedside states that he simply did not want to get up today. He normally will get up early in the morning and today he wanted to sleep all day. His called EMS as she also was worried that maybe he had a low blood sugar because he was not eating. The patient was found to have a fever of 101? F when EMS arrived and he was brought to the hospital for evaluation. Here in the hospital the patient is confused and only oriented to himself. He cannot answer any questions reliably and denies any significant symptoms. His confirm to me that this is not his normal baseline and that he is indeed confused tonight. She has not noticed any significant coughing at home over the past few days and tells me that he has not been complaining of anything specific. She does however report to me that the patient recently has been drinking fluids while laying in bed and states that he does lay on his left side. He was evaluated emergency room this evening and Found to be septic with fever, tachypnea, and leukocytosis. Brain CT was negative for any acute intracranial pathology. Chest x-ray revealed patchy airspace opacities in left mid and lower lung zones, consistent with pneumonia. patient's urinalysis was also abnormal. ER provider has treated the patient with IV fluids and IV antibiotics. We been asked to admit the patient to the hospital for further care. No other complaints at this time. Review of Systems Review of Systems: All systems reviewed & are unremarkable except as noted in HPI and below PMFSH Past Medical History Medical History (Updated 12/29/20 @ 23:24 by Geronimo Springer MD) Chronic anemia CKD (chronic kidney disease) Stage III with creatinine currently at his baseline around 2.2 CVA (cerebral vascular accident) Hemorrhagic stroke in 2004, thrombotic stroke in 2014 resulting in left-sided hemiparesis and left facial droop, 3rd stroke 09/2018 in the left mid brain resulting in diplopia, right-sided weakness and double vision Depression Diabetic nephropathy Diabetic polyneuropathy History of BPH Hx of gout Hx of seizure disorder Hyperlipidemia Hypertension Hypothyroidism Insulin dependent diabetes mellitus On insulin pump. Patient's last hemoglobin A1c October 2018 was 7.[address] Surgical History Surgical History H/O cataract removal with insertion of prosthetic lens Bilateral History of shoulder surgery Right shoulder surgery to remove a bone spur Status post placement of implantable loop recorder December 2018 Family History Family History Father Diabetes mellitus Mother Family history of arthritis Other Family history of hearing loss Social History Social History Social History: The patient is a full code at this time. home is a durable power corporate attorney for healthcare.They have 2 children. 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 Patient continues to use chewing tobacco Tobacco type: smokeless tobacco Smokeless tobacco user: chewing tobacco Second hand tobacco smoke exposure: No Additional smoking assessment comments: chews tobacco daily Alcohol intake: current Drinks per week: 7 Substance use: unknown Substance use type: does not use Other substance usage details: chews tobacco Gender identity (if verbalized by the patient): Male Spiritual care concerns: No Agree to blood products: Yes Meds Home Medications and Allergies Home Medications Medication
[2020-12-29 23:09] VITALS: BP 105/55; PULSE 77; RESP 16; O2SAT 94
[2020-12-29 23:46] VITALS: BP 111/54; PULSE 73; RESP 20; TEMP 36.6; O2SAT 95; BMI 26.0
[2020-12-30] VITALS (11 sets, daily range): BP systolic 114–140; BP diastolic 53–61; PULSE 63–89; RESP 16–20; TEMP 36.3–36.8; O2SAT 96–97
--- NOTE | 2020-12-30 00:22 | PC.NURSE ---
This patient, Cliff Call, was admitted to [facility] Surg Room 307-01. Patient/family oriented to hospital policies and general routines including ID bracelet, bed and alarms, visiting hours, pain management, procedures, bathroom and other care routines, personal items, smoking policy, room service/diet, and visiting hours. Information on how to activate the Rapid Response Team has been discussed. Patient/Family are encouraged to report perceived risks to care and to ask questions if they do not understand what they are told or what they should do.
[2020-12-30] MEDS: INSULIN ASPART (*BKC) 100 UNITS/ML SUB-Q ×5 (00:54→23:41)
[2020-12-30] MEDS: SODIUM CHLORIDE 0.9% IV 1,000 ML 100 ML IV CONT ×3 (00:55→23:44)
[2020-12-30 02:12] LABS: Glucose Point of Care 238 (65-105)
[2020-12-30] MEDS: ALBUTEROL SULFATE NEB 2.5 MG/0.5 ML INH 5 MG INHALATION ×2 (02:48→08:51)
[2020-12-30] MEDS: LEVOTHYROXINE SODIUM INJ 100 MCG/5 ML VIAL 88 MCG IV PUSH (05:34)
[2020-12-30 06:08] LABS: Basophils Percent Auto 0.3 % (0.2-1.2); Eosinophils Absolute Auto 0.1 K/mm3 (0-0.3); Eosinophils Percent Auto 0.8 % (0-4.4); Hematocrit 23.7 % (42.0-52.0); Hemoglobin 7.7 g/dL (14.0-18.0); Immature Granulocyte Absolute 0.07 K/mm3 (0.00-0.031); Immature Granulocyte Percent A 0.5 % (0-0.5); Lymphocytes Absolute Auto 1.85 K/mm3 (0.9-3.2); Lymphocytes Percent Auto 13.4 % (18.3-44.2); Mean Corpuscular HGB Conc 32.5 g/dl (32-36); Mean Corpuscular Hemoglobin 29.7 pg (26-34); Mean Corpuscular Volume 91.5 fl (80-100); Mean Platelet Volume 9.5 fl (7.4-10.4); Monocytes Absolute Auto 2.3 K/mm3 (0.1-0.6); Monocytes Percent Auto 16.5 % (2.6-8.5); Neutrophils Absolute Auto 9.5 K/mm3 (1.3-6.7); Neutrophils Percent Auto 68.5 % (45.5-73.1); Platelet Count Result 270 k/mm3 (150-375); Red Blood Count 2.59 M/mm3 (4.6-6.20); Red Cell Distribution Width 12.7 % (11.5-14.5); White Blood Count 13.8 K/mm3 (4.5-10.0)
[2020-12-30 06:19] LABS: Glucose Point of Care 201 (65-105)
[2020-12-30 06:22] LABS: Alanine Aminotransferase 11 U/L (4-50); Albumin Level 3.2 g/dL (3.5-5.1); Alkaline Phosphatase 87 U/L (38-126); Anion Gap 8 mmol/L (8-16); Aspartate Amino Transferase 16 U/L (17-59); Bilirubin,Total 0.4 mg/dL (0.2-1.3); Blood Urea Nitrogen 56 mg/dL (9-20); Calcium 7.7 mg/dL (8.4-10.2); Carbon Dioxide 25 mmol/L (22-30); Chloride 111 mmol/L (98-107); Estimated CRCL calculation 18 ml/min; Estimated Glomerular Filt Rate 19; Glucose 218 mg/dL (75-110); Potassium 4.7 mmol/L (3.4-5.0); Sodium 144 mmol/L (137-145)
[2020-12-30 07:23] LABS: Folic Acid 9.3 ng/mL (2.76->20)
[2020-12-30] MEDS: LEVOTHYROXINE SODIUM 100 MCG TABLET PO (08:32)
[2020-12-30] MEDS: metroNIDAZOLE 500 MG/ISO 100ML 500 MG/100 ML BAG 100 MG IVPB ×3 (08:32→23:38)
[2020-12-30] MEDS: amLODIPine BESYLATE 5 MG TABLET 10 MG PO (08:33)
[2020-12-30] MEDS: carvediloL 25 MG TABLET PO ×2 (08:33→16:52)
[2020-12-30] MEDS: LEVOTHYROXINE SODIUM 75 MCG TABLET PO (08:33)
[2020-12-30] MEDS: ROSUVASTATIN 10 MG TABLET PO (08:33)
[2020-12-30] MEDS: ASPIRIN 325 MG TABLET PO (08:34)
[2020-12-30] MEDS: allopurinoL 100 MG TABLET PO (08:34)
[2020-12-30] MEDS: levETIRAcetam 500MG/NACL 100ML 500 MG/100 ML BAG 400 MG IVPB (10:33)
[2020-12-30 12:27] LABS: Glucose Point of Care 204 (65-105)
--- NOTE | 2020-12-30 15:11 | PCSTNOTE ---
Please refer to the Bedside Swallow Evaluation in the EMR. Please note, silent aspiration cannot be ruled out at bedside.
--- NOTE | 2020-12-30 15:12 | P.PNIM_ITS ---
Progress Note: A&P Assessment and Plan (1) Acute encephalopathy: Code(s): G93.40 - Encephalopathy, unspecified Status: Acute Assessment and Plan: Likely infectious encephalopathy from acute pneumonia vs possible UTI. Appears to have improved clinically overnight. TSH WNL * Continue treatment for infection as noted below * Continue aspiration precautions * Neuro checks * check TSH reflex T4, check B12 and folate levels. * Consider neurology consultation in a.m. the patient's mental status is not back to baseline. * Monitor (2) Community acquired pneumonia: Code(s): J18.9 - Pneumonia, unspecified organism Status: Acute Assessment and Plan: Possible aspiration pneumonia given history that was provided, although CXR sh ows infiltrates left>right. Discussed with ST today who evaluated the patient and recommended pureed diet with mod thick liquids and recommended mod barium swallow study prior to discharge; they will follow during coarse. Started on Azithromycin and Rocephin from ED (day 2); Flagyl added for coverage for possible aspiration pneumonia (day 1). * Will do Azithromycin 500 mg daily x 3 days total for atypical coverage * Will do Rocephin and Flagyl IV for coverage for aspiration pneumonia; total duration depending on clinical course * Check sputum culture. * Check pneumococcal and Legionella urine antigen; pending * Will do p.r.n. bronchodilators. * Continue oxygen supplementation prn and wean off as tolerated. * Aspiration precautions. * Blood cultures pending. (3) Acute UTI: Code(s): N39.0 - Urinary tract infection, site not specified Status: Acute Assessment and Plan: UA suggestive of UTI. UCx pending. Patient presented with AMS, but otherwise denies any current urinary symptoms. * Continue IV antibiotics, tailor abx to culture * Monitor clinical status (4) Sepsis: Code(s): A41.9 - Sepsis, unspecified organism Status: Acute Assessment and Plan: SIRS criteria met with leukocytosis and fever of 101 in the field; source of sepsis appears to be pulmonary, as well as, possibly urinary. Leukocytosis and VS appears to be improving. Lactc acid normal. * Continue IV antibiotics as noted above * Monitor vital signs and urine output. * Monitor acid-base status. * Blood urine and sputum cultures are pending. (5) Leukocytosis: Code(s): D72.829 - Elevated white blood cell count, unspecified Status: Acute Assessment and Plan: Secondary to pneumonia and UTI. Improving today * Monitor CBCD. * Continue treatment for above (6) Acute on chronic renal failure: Code(s): N17.9 - Acute kidney failure, unspecified; N18.9 - Chronic kidney disease, unspecified Status: Acute Assessment and Plan: Likely secondary to sepsis. Cr improved to 3.20 overnight. Baseline Cr ~2.50 in 06/2020, although ~2.00 in 11/2019 * Continue IV fluid challenge. * Monitor renal function. * Monitor urine output. * Renally dose medications, avoid nephrotoxin agents. * Consider renal ultrasound and Nephrology consultation in a.m. if renal function is not back to normal. (7) Chronic anemia: Code(s): D64.9 - Anemia, unspecified Status: Chronic Assessment and Plan: H&H stable and appears to be at baseline. Likely anemia of chronic disease. No signs o
--- NOTE | 2020-12-30 15:12 | PM.IMPN ---
Progress Note: A&P Assessment and Plan (1) Acute encephalopathy: Code(s): G93.40 - Encephalopathy, unspecified Status: Acute Assessment and Plan: Likely infectious encephalopathy from acute pneumonia vs possible UTI. Appears to have improved clinically overnight. TSH WNL Continue treatment for infection as noted below Continue aspiration precautions Neuro checks check TSH reflex T4, check B12 and folate levels. Consider neurology consultation in a.m. the patient's mental status is not back to baseline. Monitor (2) Community acquired pneumonia: Code(s): J18.9 - Pneumonia, unspecified organism Status: Acute Assessment and Plan: Possible aspiration pneumonia given history that was provided, although CXR shows infiltrates left>right. Discussed with ST today who evaluated the patient and recommended pureed diet with mod thick liquids and recommended mod barium swallow study prior to discharge; they will follow during coarse. Started on Azithromycin and Rocephin from ED (day 2); Flagyl added for coverage for possible aspiration pneumonia (day 1). Will do Azithromycin 500 mg daily x 3 days total for atypical coverage Will do Rocephin and Flagyl IV for coverage for aspiration pneumonia; total duration depending on clinical course Check sputum culture. Check pneumococcal and Legionella urine antigen; pending Will do p.r.n. bronchodilators. Continue oxygen supplementation prn and wean off as tolerated. Aspiration precautions. Blood cultures pending. (3) Acute UTI: Code(s): N39.0 - Urinary tract infection, site not specified Status: Acute Assessment and Plan: UA suggestive of UTI. UCx pending. Patient presented with AMS, but otherwise denies any current urinary symptoms. Continue IV antibiotics, tailor abx to culture Monitor clinical status (4) Sepsis: Code(s): A41.9 - Sepsis, unspecified organism Status: Acute Assessment and Plan: SIRS criteria met with leukocytosis and fever of 101 in the field; source of sepsis appears to be pulmonary, as well as, possibly urinary. Leukocytosis and VS appears to be improving. Lactc acid normal. Continue IV antibiotics as noted above Monitor vital signs and urine output. Monitor acid-base status. Blood urine and sputum cultures are pending. (5) Leukocytosis: Code(s): D72.829 - Elevated white blood cell count, unspecified Status: Acute Assessment and Plan: Secondary to pneumonia and UTI. Improving today Monitor CBCD. Continue treatment for above (6) Acute on chronic renal failure: Code(s): N17.9 - Acute kidney failure, unspecified; N18.9 - Chronic kidney disease, unspecified Status: Acute Assessment and Plan: Likely secondary to sepsis. Cr improved to 3.20 overnight. Baseline Cr ~2.50 in 06/2020, although ~2.00 in 11/2019 Continue IV fluid challenge. Monitor renal function. Monitor urine output. Renally dose medications, avoid nephrotoxin agents. Consider renal ultrasound and Nephrology consultation in a.m. if renal function is not back to normal. (7) Chronic anemia: Code(s): D64.9 - Anemia, unspecified Status: Chronic Assessment and Plan: H&H stable and appears to be at baseline. Likely anemia of chronic disease. No signs of acute blood loss. Monitor H&H transfuse p.r.n. (8) Hypothyroidism: Code(s): E03.9 - Hypothyroidism, unspecified Status: Chronic Assessment and Plan: TSH WNL Resume home PO levothyroxine (9) Hypertension: Qualifiers: Hypertension type: essential hypertension Qualif
[2020-12-30 17:36] LABS: Glucose Point of Care 215 (65-105)
[2020-12-30 18:21] LABS: SARS-CoV-2 RNA PCR Negative
[2020-12-30] MEDS: CLOPIDOGREL BISULFATE 75 MG TABLET PO (20:45)
[2020-12-30] MEDS: levETIRAcetam 500 MG TABLET PO (20:45)
[2020-12-30] MEDS: guanFACINE HCL 1 MG TABLET PO (20:45)
[2020-12-30] MEDS: risperiDONE 1 MG TABLET PO (20:46)
[2020-12-30 23:56] LABS: Glucose Point of Care 400 (65-105)
[2020-12-31] VITALS (12 sets, daily range): BP systolic 123–148; BP diastolic 54–69; PULSE 66–73; RESP 16–20; TEMP 36.4–36.6; O2SAT 95–98
[2020-12-31 00:17] LABS: Influenza Control Positive
[2020-12-31] MEDS: INSULIN ASPART (*BKC) 100 UNITS/ML SUB-Q ×2 (05:57→12:06)
[2020-12-31] MEDS: LEVOTHYROXINE SODIUM 75 MCG TABLET PO (05:59)
[2020-12-31] MEDS: LEVOTHYROXINE SODIUM 100 MCG TABLET PO (05:59)
[2020-12-31 06:09] LABS: Glucose Point of Care 290 (65-105)
[2020-12-31 06:37] LABS: Basophils Absolute Auto 0.1 K/mm3 (0.0-0.1); Basophils Percent Auto 0.5 % (0.2-1.2); Eosinophils Absolute Auto 0.2 K/mm3 (0-0.3); Eosinophils Percent Auto 1.8 % (0-4.4); Hemoglobin A1C 7.8 % (<5.7); Immature Granulocyte Absolute 0.04 K/mm3 (0.00-0.031); Immature Granulocyte Percent A 0.4 % (0-0.5); Lymphocytes Absolute Auto 1.36 K/mm3 (0.9-3.2); Mean Corpuscular HGB Conc 32.8 g/dl (32-36); Mean Corpuscular Hemoglobin 30.2 pg (26-34); Mean Corpuscular Volume 92.1 fl (80-100); Mean Platelet Volume 9.6 fl (7.4-10.4); Monocytes Absolute Auto 1.5 K/mm3 (0.1-0.6); Monocytes Percent Auto 15.5 % (2.6-8.5); Neutrophils Absolute Auto 6.6 K/mm3 (1.3-6.7); Neutrophils Percent Auto 67.8 % (45.5-73.1); Platelet Count Result 239 k/mm3 (150-375); Red Blood Count 2.15 M/mm3 (4.6-6.20); Red Cell Distribution Width 12.5 % (11.5-14.5); White Blood Count 9.7 K/mm3 (4.5-10.0)
[2020-12-31 06:39] LABS: Anion Gap 8 mmol/L (8-16); Blood Urea Nitrogen 52 mg/dL (9-20); Calcium 7.6 mg/dL (8.4-10.2); Carbon Dioxide 21 mmol/L (22-30); Chloride 112 mmol/L (98-107); Estimated CRCL calculation 20 ml/min; Estimated Glomerular Filt Rate 21; Glucose 309 mg/dL (75-110); Magnesium 1.5 mg/dL (1.6-2.3); Potassium 4.4 mmol/L (3.4-5.0); Sodium 141 mmol/L (137-145)
[2020-12-31 06:51] LABS: Hematocrit 19.8 % (42.0-52.0); Hemoglobin 6.5 g/dL (14.0-18.0)
[2020-12-31] MEDS: MAGNESIUM SULF 2 GM/WATER 50ML 2 GM/50 ML BAG IVPB (07:50)
[2020-12-31 08:09] LABS: Glucose Point of Care 277 (65-105)
--- NOTE | 2020-12-31 08:13 | PHAR ---
HOME MED VERIFIED LOKELMA 5 GRAMS ONE-HALF PACKET IN 45 MLS WATER ON WED,WED,WE,FR
[2020-12-31] MEDS: metroNIDAZOLE 500 MG/ISO 100ML 500 MG/100 ML BAG 100 MG IVPB ×2 (08:42→15:51)
[2020-12-31] MEDS: FLUoxetine HCL 20 MG CAPSULE PO (08:44)
[2020-12-31] MEDS: ROSUVASTATIN 10 MG TABLET PO (08:44)
[2020-12-31] MEDS: ASPIRIN 325 MG TABLET PO (08:44)
[2020-12-31] MEDS: amLODIPine BESYLATE 5 MG TABLET 10 MG PO (08:44)
[2020-12-31] MEDS: DULoxetine HCL 30 MG CAPSULE.DR PO (08:44)
[2020-12-31] MEDS: carvediloL 25 MG TABLET PO ×2 (08:44→17:10)
[2020-12-31] MEDS: allopurinoL 100 MG TABLET PO (08:44)
[2020-12-31] MEDS: levETIRAcetam 500 MG TABLET PO ×2 (08:47→19:59)
[2020-12-31] MEDS: SODIUM CHLORIDE 0.9% IV 250 ML 30 ML IV CONT (10:33)
--- NOTE | 2020-12-31 11:22 | P.PNIM_ITS ---
Progress Note: A&P Assessment and Plan (1) Chronic anemia: Code(s): D64.9 - Anemia, unspecified Status: Chronic Assessment and Plan: On chronic anemia.H&H stable and appears to be at baseline. Likely anemia of chronic disease. * 12/31/2020-critical H&H showed hemoglobin of 6.5, hematocrit 19%. Most likely due to anemia chronic disease on top IV fluid dilution causing him to have a decreased from his baseline which is normally around 8-7. He did receive 1 unit of PRBCs. Will recheck H&H after transfusion and monitor further. * Will check anemia levels * Normal vitamin B12 and folic acid * No signs of acute blood loss. * Monitor H&H * transfuse p.r.n. (2) Aspiration pneumonia: Code(s): J69.0 - Pneumonitis due to inhalation of food and vomit Status: Acute Assessment and Plan: Possible aspiration pneumonia given history that was provided, although CXR shows infiltrates left>right. Discussed with ST today who evaluated the patient and recommended pureed diet with mod thick liquids and recommended mod barium s wallow study prior to discharge; they will follow during coarse. Started on Azithromycin and Rocephin from ED (day 3); Flagyl added for coverage for possible aspiration pneumonia (day 2). * Will do Azithromycin 500 mg daily x 3 days total for atypical coverage * Will do Rocephin and Flagyl IV for coverage for aspiration pneumonia; total duration depending on clinical course * Check sputum culture. * Pending pneumococcal and Legionella urine antigen; pending * Continue p.r.n. bronchodilators. * Continue oxygen supplementation prn and wean off as tolerated. * Aspiration precautions. * Blood cultures pending. Continue monitoring (3) Acute encephalopathy: Code(s): G93.40 - Encephalopathy, unspecified Status: Acute Assessment and Plan: Likely infectious encephalopathy from acute pneumonia vs possible UTI. * Continue treatment for infection as noted below * Continue aspiration precautions * Neuro checks * Normal TSH reflex T4, B12 and folate levels. * Patients mental status is much improved today, per . Sitting up, awake alert, answering questions * Monitor (4) Acute UTI: Code(s): N39.0 - Urinary tract infection, site not specified Status: Acute Assessment and Plan: UA suggestive of UTI. UCx pending. Patient presented with AMS, but otherwise denies any current urinary symptoms. * Continue IV antibiotics, tailor abx to culture * Monitor clinical status (5) Sepsis: Code(s): A41.9 - Sepsis, unspecified organism Status: Acute Assessment and Plan: SEPSIS criteria met with leukocytosis and fever of 101 in the field; source of sepsis appears to be pulmonary, as well as, possibly urinary. Leukocytosis and VS appears to be improving. Lactic acid normal. * Continue IV antibiotics as noted above * Monitor vital signs and urine output. * Monitor acid-base status. * Blood urine and sputum cultures are pending. (6) Leukocytosis: Code(s): D72.829 - Elevated white blood cell count, unspecified Status: Acute Assessment and Plan: Secondary to pneumonia and UTI. Normalized today * Monitor CBC. * Continue treatment for above (7) Acute on chronic renal failure: Code(s): N17.9 - Acute kidney failure, unspecified; N18.9 - Chronic kidney disease
--- NOTE | 2020-12-31 11:22 | PM.IMPN ---
Progress Note: A&P Assessment and Plan (1) Chronic anemia: Code(s): D64.9 - Anemia, unspecified Status: Chronic Assessment and Plan: On chronic anemia.H&H stable and appears to be at baseline. Likely anemia of chronic disease. 12/31/2020-critical H&H showed hemoglobin of 6.5, hematocrit 19%. Most likely due to anemia chronic disease on top IV fluid dilution causing him to have a decreased from his baseline which is normally around 8-7. He did receive 1 unit of PRBCs. Will recheck H&H after transfusion and monitor further. Will check anemia levels Normal vitamin B12 and folic acid No signs of acute blood loss. Monitor H&H transfuse p.r.n. (2) Aspiration pneumonia: Code(s): J69.0 - Pneumonitis due to inhalation of food and vomit Status: Acute Assessment and Plan: Possible aspiration pneumonia given history that was provided, although CXR shows infiltrates left>right. Discussed with ST today who evaluated the patient and recommended pureed diet with mod thick liquids and recommended mod barium swallow study prior to discharge; they will follow during coarse. Started on Azithromycin and Rocephin from ED (day 3); Flagyl added for coverage for possible aspiration pneumonia (day 2). Will do Azithromycin 500 mg daily x 3 days total for atypical coverage Will do Rocephin and Flagyl IV for coverage for aspiration pneumonia; total duration depending on clinical course Check sputum culture. Pending pneumococcal and Legionella urine antigen; pending Continue p.r.n. bronchodilators. Continue oxygen supplementation prn and wean off as tolerated. Aspiration precautions. Blood cultures pending. Continue monitoring (3) Acute encephalopathy: Code(s): G93.40 - Encephalopathy, unspecified Status: Acute Assessment and Plan: Likely infectious encephalopathy from acute pneumonia vs possible UTI. Continue treatment for infection as noted below Continue aspiration precautions Neuro checks Normal TSH reflex T4, B12 and folate levels. Patients mental status is much improved today, per . Sitting up, awake alert, answering questions Monitor (4) Acute UTI: Code(s): N39.0 - Urinary tract infection, site not specified Status: Acute Assessment and Plan: UA suggestive of UTI. UCx pending. Patient presented with AMS, but otherwise denies any current urinary symptoms. Continue IV antibiotics, tailor abx to culture Monitor clinical status (5) Sepsis: Code(s): A41.9 - Sepsis, unspecified organism Status: Acute Assessment and Plan: SEPSIS criteria met with leukocytosis and fever of 101 in the field; source of sepsis appears to be pulmonary, as well as, possibly urinary. Leukocytosis and VS appears to be improving. Lactic acid normal. Continue IV antibiotics as noted above Monitor vital signs and urine output. Monitor acid-base status. Blood urine and sputum cultures are pending. (6) Leukocytosis: Code(s): D72.829 - Elevated white blood cell count, unspecified Status: Acute Assessment and Plan: Secondary to pneumonia and UTI. Normalized today Monitor CBC. Continue treatment for above (7) Acute on chronic renal failure: Code(s): N17.9 - Acute kidney failure, unspecified; N18.9 - Chronic kidney disease, unspecified Status: Acute Assessment and Plan: Likely secondary to sepsis. Cr improved to 2.90 overnight. Baseline Cr ~2.50-2.80 in 06/2020 Will D/C IV fluids at this time since he is eating and drinking. Renal function appears to be at baseline Monitor renal function. Monitor urine output. Renally dose medications, avoid nephrotoxin agents. Consider renal
[2020-12-31 11:49] LABS: Glucose Point of Care 416 (65-105)
[2020-12-31 16:08] LABS: Hematocrit 26.4 % (42.0-52.0); Hemoglobin 8.7 g/dL (14.0-18.0); Mean Corpuscular Hemoglobin 30.2 pg (26-34); Mean Corpuscular Volume 91.7 fl (80-100); Mean Platelet Volume 9.3 fl (7.4-10.4); Platelet Count Result 238 k/mm3 (150-375); Red Blood Count 2.88 M/mm3 (4.6-6.20); Red Cell Distribution Width 12.7 % (11.5-14.5)
[2020-12-31 17:19] LABS: Glucose Point of Care 498 (65-105)
[2020-12-31] MEDS: guanFACINE HCL 1 MG TABLET PO (19:59)
[2020-12-31] MEDS: risperiDONE 1 MG TABLET PO (19:59)
[2020-12-31] MEDS: CLOPIDOGREL BISULFATE 75 MG TABLET PO (19:59)
[2020-12-31 21:06] LABS: Glucose Point of Care 454 (65-105)
--- NOTE | 2020-12-31 21:18 | PC.NURSE ---
Patient was given order to start using insulin pump 12/30/20. Blood sugar at 199912/30/20 454. Due to patients high blood sugars and altered mental status, orders were given by Olamide Dang NP to remove insulin pump and continue novolog regimen.
[2020-12-31] MEDS: INSULIN GLARGINE (*BKC) 100 UNITS/ML 14 UNITS SUB-Q (21:33)
[2020-12-31] MEDS: INSULIN ASPART (*BKC) 100 UNITS/ML 6 UNITS SUB-Q (21:33)
[2021-01-01] MEDS: metroNIDAZOLE 500 MG/ISO 100ML 500 MG/100 ML BAG 100 MG IVPB ×3 (00:37→17:17)
[2021-01-01 06:00] VITALS: BP 129/73; PULSE 68; RESP 16; TEMP 36.4; O2SAT 95
[2021-01-01 06:36] LABS: Hematocrit 23.4 % (42.0-52.0); Mean Corpuscular HGB Conc 34.2 g/dl (32-36); Mean Corpuscular Hemoglobin 30.7 pg (26-34); Mean Corpuscular Volume 89.7 fl (80-100); Mean Platelet Volume 9.6 fl (7.4-10.4); Platelet Count Result 250 k/mm3 (150-375); Red Blood Count 2.61 M/mm3 (4.6-6.20); Red Cell Distribution Width 12.7 % (11.5-14.5); White Blood Count 8.6 K/mm3 (4.5-10.0)
[2021-01-01] MEDS: LEVOTHYROXINE SODIUM 100 MCG TABLET PO (06:43)
[2021-01-01] MEDS: LEVOTHYROXINE SODIUM 75 MCG TABLET PO (06:43)
[2021-01-01 06:45] LABS: Anion Gap 8 mmol/L (8-16); Blood Urea Nitrogen 51 mg/dL (9-20); Calcium 7.7 mg/dL (8.4-10.2); Carbon Dioxide 23 mmol/L (22-30); Chloride 111 mmol/L (98-107); Estimated CRCL calculation 20 ml/min; Estimated Glomerular Filt Rate 21; Glucose 241 mg/dL (75-110); Magnesium 1.9 mg/dL (1.6-2.3); Potassium 4.3 mmol/L (3.4-5.0); Sodium 142 mmol/L (137-145)
[2021-01-01 08:00] VITALS: PULSE 64; RESP 16; O2SAT 95
[2021-01-01 08:36] VITALS: PULSE 64
[2021-01-01] MEDS: FLUoxetine HCL 20 MG CAPSULE PO (08:36)
[2021-01-01] MEDS: amLODIPine BESYLATE 5 MG TABLET 10 MG PO (08:36)
[2021-01-01] MEDS: ASPIRIN 325 MG TABLET PO (08:36)
[2021-01-01] MEDS: carvediloL 25 MG TABLET PO ×2 (08:36→18:20)
[2021-01-01] MEDS: DULoxetine HCL 30 MG CAPSULE.DR PO (08:38)
[2021-01-01] MEDS: allopurinoL 100 MG TABLET PO (08:38)
[2021-01-01] MEDS: levETIRAcetam 500 MG TABLET PO ×2 (08:38→19:56)
[2021-01-01] MEDS: ROSUVASTATIN 10 MG TABLET PO (08:38)
[2021-01-01 09:06] LABS: Iron 64 ug/dL (49-181)
[2021-01-01 09:19] LABS: Percent Iron Saturation 29 % (20-50)
[2021-01-01 11:25] LABS: Glucose Point of Care 192 (65-105)
--- NOTE | 2021-01-01 11:34 | PM.IMPN ---
Progress Note: A&P Assessment and Plan (1) Acute encephalopathy: Code(s): G93.40 - Encephalopathy, unspecified Status: Acute Assessment and Plan: Likely infectious encephalopathy from acute pneumonia vs possible UTI Patient had some confusion on the morning of 01/01/2021. Believe it is due to hospital delirium. Upon my evaluation he is A&O x3, could talk to me the president. Will work on getting him up for meals. Sitting up in the chair. Making sure he sleeping well at night. Normal TSH reflex T4, B12 and folate levels. Patient's states now he is better than he was this morning. Monitor (2) Chronic anemia: Code(s): D64.9 - Anemia, unspecified Status: Chronic Assessment and Plan: Acute On chronic anemia.H&H stable and appears to be at baseline. Likely anemia of chronic disease. 12/31/2020-critical H&H showed hemoglobin of 6.5, hematocrit 19%. Most likely due to anemia chronic disease on top IV fluid dilution causing him to have a decreased from his baseline which is normally around 8-7. He did receive 1 unit of PRBCs. Will recheck H&H after transfusion and monitor further. 01/02/2020-H&H is stable today, hemoglobin of 8, hematocrit 23%. Discontinued IV fluids at this time. Continue monitoring H&H Q 12. Iron labs shows anemia chronic disease. Normal% saturation. Normal vitamin B12 and folic acid No signs of acute blood loss. Monitor H&H transfuse p.r.n. (3) Aspiration pneumonia: Code(s): J69.0 - Pneumonitis due to inhalation of food and vomit Status: Acute Assessment and Plan: Possible aspiration pneumonia given history that was provided, although CXR shows infiltrates left>right. Discussed with ST today who evaluated the patient and recommended pureed diet with mod thick liquids and recommended mod barium swallow study prior to discharge; they will follow during coarse. Started on Azithromycin and Rocephin from ED (day 3); Flagyl added for coverage for possible aspiration pneumonia (day 2). Will do Azithromycin 500 mg daily x 3 days total for atypical coverage (discontinued on 12/31/2020) Continue Rocephin and Flagyl IV for coverage for aspiration pneumonia; total duration depending on clinical course Check sputum culture. Pending pneumococcal and Legionella urine antigen; pending Continue p.r.n. bronchodilators. Due to patient's aspiration pneumonia, speech therapy evaluated him and he was placed on a pureed diet and moderately thickened liquids. Since he is more awake and alert at this time we will order modified barium swallow for further evaluation. is concerned about his diet changes and not being able to the do this at home. We will see with modified barium swallows shows and what he will need to be on. He is resting comfortably on room air. Aspiration precautions. Blood cultures negative to date Continue monitoring (4) Acute UTI: Code(s): N39.0 - Urinary tract infection, site not specified Status: Acute Assessment and Plan: UA suggestive of UTI. Urine culture showing growth of Klebsiella pneumoniae, pending sensitivities. Should be sensitive the IV ceftriaxone. Patient presented with AMS, but otherwise denies any current urinary symptoms. Monitor clinical status (5) Sepsis: Code(s): A41.9 - Sepsis, unspecified organism Status: Acute Assessment and Plan: SEPSIS criteria met with leukocytosis and fever of 101 in the field; source of sepsis appears to be pulmonary, as well as, possibly urinary. Leukocytosis and VS appears to be improving. Lactic acid normal. Continue IV antibiotics as noted above Monitor vital signs and urine output. Monitor acid-base status. Blood urine and sputum cultures are pending.
[2021-01-01 12:19] VITALS: BMI 26.0
[2021-01-01 12:20] LABS: Glucose Point of Care 198 (65-105)
[2021-01-01 14:00] VITALS: BP 134/78; PULSE 72; RESP 18; TEMP 36.5; O2SAT 95
--- NOTE | 2021-01-01 15:05 | PCSTNOTE ---
Please refer to the Modified Barium Swallow Evaluation in the EMR.
[2021-01-01 18:06] LABS: Glucose Point of Care 281 (65-105)
[2021-01-01 18:20] VITALS: PULSE 68
[2021-01-01] MEDS: INSULIN ASPART (*BKC) 100 UNITS/ML SUB-Q (18:21)
[2021-01-01] MEDS: guanFACINE HCL 1 MG TABLET PO (19:56)
[2021-01-01] MEDS: CLOPIDOGREL BISULFATE 75 MG TABLET PO (19:56)
[2021-01-01] MEDS: INSULIN GLARGINE (*BKC) 100 UNITS/ML 14 UNITS SUB-Q (19:57)
[2021-01-01] MEDS: risperiDONE 1 MG TABLET PO (19:57)
[2021-01-01 20:10] LABS: Glucose Point of Care 314 (65-105)
[2021-01-01 22:00] VITALS: BP 148/79; PULSE 59; RESP 20; TEMP 36.3; O2SAT 100
[2021-01-01 22:25] LABS: Legionella pneumophila Ag Ur Not Detected (Not Detected)
[2021-01-01 22:29] LABS: Pneumococcal Antigen Urine Not Detected (Not Detected)
[2021-01-02] VITALS (7 sets, daily range): BP systolic 134–158; BP diastolic 53–85; PULSE 64–67; RESP 16–18; TEMP 36.4; O2SAT 96–99
[2021-01-02] MEDS: metroNIDAZOLE 500 MG/ISO 100ML 500 MG/100 ML BAG 100 MG IVPB ×2 (01:00→08:48)
[2021-01-02] MEDS: LEVOTHYROXINE SODIUM 100 MCG TABLET PO (05:57)
[2021-01-02] MEDS: LEVOTHYROXINE SODIUM 75 MCG TABLET PO (05:57)
[2021-01-02 06:55] LABS: Hematocrit 23.6 % (42.0-52.0); Hemoglobin 7.9 g/dL (14.0-18.0); Mean Corpuscular HGB Conc 33.5 g/dl (32-36); Mean Corpuscular Volume 89.7 fl (80-100); Mean Platelet Volume 9.6 fl (7.4-10.4); Platelet Count Result 243 k/mm3 (150-375); Red Blood Count 2.63 M/mm3 (4.6-6.20); Red Cell Distribution Width 12.6 % (11.5-14.5); White Blood Count 6.4 K/mm3 (4.5-10.0)
[2021-01-02 07:12] LABS: Anion Gap 6 mmol/L (8-16); Blood Urea Nitrogen 44 mg/dL (9-20); Calcium 7.6 mg/dL (8.4-10.2); Carbon Dioxide 25 mmol/L (22-30); Chloride 110 mmol/L (98-107); Estimated CRCL calculation 21 ml/min; Estimated Glomerular Filt Rate 23; Glucose 159 mg/dL (75-110); Potassium 4.2 mmol/L (3.4-5.0); Sodium 141 mmol/L (137-145)
[2021-01-02 08:11] LABS: Glucose Point of Care 141 (65-105)
[2021-01-02] MEDS: DULoxetine HCL 30 MG CAPSULE.DR PO (08:47)
[2021-01-02] MEDS: FLUoxetine HCL 20 MG CAPSULE PO (08:47)
[2021-01-02] MEDS: ASPIRIN 325 MG TABLET PO (08:47)
[2021-01-02] MEDS: allopurinoL 100 MG TABLET PO (08:48)
[2021-01-02] MEDS: carvediloL 25 MG TABLET PO ×2 (08:48→16:30)
[2021-01-02] MEDS: levETIRAcetam 500 MG TABLET PO (08:48)
[2021-01-02] MEDS: amLODIPine BESYLATE 5 MG TABLET 10 MG PO (08:48)
[2021-01-02] MEDS: ROSUVASTATIN 10 MG TABLET PO (08:48)
[2021-01-02 13:18] LABS: Glucose Point of Care 305 (65-105)
[2021-01-02] MEDS: INSULIN ASPART (*BKC) 100 UNITS/ML SUB-Q (13:34)
--- NOTE | 2021-01-02 14:50 | PM.DS ---
DS: Admitting Diagnosis Admitting Diagnosis Admitting Diagnosis: AMS DS: Discharge Diagnosis Discharge Diagnosis (1) Acute encephalopathy: Code(s): G93.40 - Encephalopathy, unspecified Status: Acute Assessment and Plan: Likely infectious encephalopathy from acute pneumonia vs possible UTI Patient seemed to be improved at this time. No more confusion at his baseline. Plans for him to be discharged home to continue treatment of his aspiration pneumonia and UTI. He will be going home with home health to continue with PT/OT/speech therapy Family feels comfortable with taking him home at this time and have no concerns or issues. (2) Chronic anemia: Code(s): D64.9 - Anemia, unspecified Status: Chronic Assessment and Plan: Acute On chronic anemia.H&H stable and appears to be at baseline. Likely anemia of chronic CKD. 12/31/2020-critical H&H showed hemoglobin of 6.5, hematocrit 19%. Most likely due to anemia chronic disease on top IV fluid dilution causing him to have a decreased from his baseline which is normally around 8-7. He did receive 1 unit of PRBCs. Will recheck H&H after transfusion and monitor further. 01/03/2020-H&H is stable today, hemoglobin of 7.9, hematocrit 23%. Iron labs shows anemia chronic disease. Normal% saturation. Normal vitamin B12 and folic acid (3) Aspiration pneumonia: Code(s): J69.0 - Pneumonitis due to inhalation of food and vomit Status: Acute Assessment and Plan: Possible aspiration pneumonia given history that was provided, although CXR shows infiltrates left>right. Will do Azithromycin 500 mg daily x 3 days total for atypical coverage (discontinued on 12/31/2020) Continue p.o. cefdinir and Flagyl for 4 more days. Pneumococcal and Legionella were negative Due to patient's aspiration pneumonia, speech therapy evaluated him and after his modified barium swallow yesterday he was placed on a small and bite size diet and moderately thickened liquids. He will be given samples of the thickening solution and told how to get it from behind the counter at pharmacies by speech therapy prior to discharge. Given the family precautions on chances of aspirating again and ways to avoid it. (4) Acute UTI: Code(s): N39.0 - Urinary tract infection, site not specified Status: Acute Assessment and Plan: UA suggestive of UTI. Urine culture showing growth of Klebsiella pneumoniae, pending sensitivities. Sensitive to cefdinir which he will be discharged home on p.o.. (5) Sepsis: Code(s): A41.9 - Sepsis, unspecified organism Status: Acute Assessment and Plan: SEPSIS criteria met with leukocytosis and fever of 101 in the field; source of sepsis appears to be pulmonary, as well as, possibly urinary. Leukocytosis and VS appears to be improving. Lactic acid normal. Normal white count. Continue antibiotics. Vital signs otherwise stable. (6) Leukocytosis: Code(s): D72.829 - Elevated white blood cell count, unspecified Status: Acute Assessment and Plan: Secondary to pneumonia and UTI. Normalized today (7) Acute on chronic renal failure: Code(s): N17.9 - Acute kidney failure, unspecified; N18.9 - Chronic kidney disease, unspecified Status: Acute Assessment and Plan: Likely secondary to sepsis. Cr improved to 2.70 overnight. Baseline Cr ~2.50-2.80 in 06/2020 (8) Hypothyroidism: Code(s): E03.9 - Hypothyroidism, unspecified Status: Chronic Assessment and Plan: TSH WNL Resume home PO levothyroxine (9) Hypertension: Qualifiers: Hypertension type: e
== END 2021-01-02 16:50 | disposition home health service (06) | DRG 871 ==
LOC: ANHED 22:36 → ANH3MEDSUR 12-30 06:44
PROVIDERS: Physician Assistant; Admitting Provider Family Medicine; Emergency Provider Emergency Medicine; PCP Family Medicine; Visit Provider Physician Assistant
DX: A41.9 Sepsis, unspecified organism (principal); G93.41 Metabolic encephalopathy; J18.9 Pneumonia, unspecified organism; J69.0 Pneumonitis due to inhalation of food and vomit; N39.0 Urinary tract infection, site not specified; N17.9 Acute kidney failure, unspecified; R41.4 Neurologic neglect syndrome; I69.354 Hemiplegia and hemiparesis following cerebral infarction affecting left non-dominant side; I69.351 Hemiplegia and hemiparesis following cerebral infarction affecting right dominant side; G40.89 Other seizures; B96.1 Klebsiella pneumoniae [K. pneumoniae] as the cause of diseases classified elsewhere; Z20.822 Contact with and (suspected) exposure to COVID-19; D63.1 Anemia in chronic kidney disease; E11.22 Type 2 diabetes mellitus with diabetic chronic kidney disease; I12.9 Hypertensive chronic kidney disease with stage 1 through stage 4 chronic kidney disease, or unspecified chronic kidney disease; N18.30 Chronic kidney disease, stage 3 unspecified; N40.0 Benign prostatic hyperplasia without lower urinary tract symptoms; E11.21 Type 2 diabetes mellitus with diabetic nephropathy; D72.829 Elevated white blood cell count, unspecified; E03.9 Hypothyroidism, unspecified; E78.5 Hyperlipidemia, unspecified; I69.392 Facial weakness following cerebral infarction; I69.398 Other sequelae of cerebral infarction; H53.2 Diplopia; E11.42 Type 2 diabetes mellitus with diabetic polyneuropathy; F17.220 Nicotine dependence, chewing tobacco, uncomplicated; Z98.42 Cataract extraction status, left eye; Z98.41 Cataract extraction status, right eye
CPT/HCPCS: 36415; 36430; 51701; 70450; 71045; 80048; 80053; 81001; 82607; 82746; 82948; 83036; 83540; 83550; 83605; 83735; 84443; 85025; 85027; 85610; 86850; 86900; 86901; 86923; 87040; 87077; 87086; 87088; 87186; 87449; 87804; 87899; 92526; 92610; 92611; 93005; 94640; 96361; 96365; 96367; 96368; 97110; 97116; 97161; 97166; 97530; 97535; 99285; A9270; C9803; J0131; J0456; J0696; J1815; J1953; J3475; J7030; J7050; P9016; U0003; U0005

== ENCOUNTER 2021-01-16 22:00 | Emergency (ER) | payer MEDICARE, SELFPAY ==
--- NOTE | ~2021-01-16 | CT_ITS ---
EXAMINATION: CT brain wo con DATE: 01/16/2021 22:46 INDICATION: Headache TECHNIQUE: Computed tomography (CT) of the head was performed without intravenous contrast. The mA wa s adjusted according to patient size. Iterative reconstruction technique was employed. Exam dose: 68 1.00 mGy-cm total exam DLP. COMPARISON: 12/29/2020 CT Brain FINDINGS: Chronic encephalomalacia in the right frontal parietal area consistent with old infarct wit hin the distribution of the right middle cerebral artery. There are chronic bilateral basal ganglia l acunar infarcts. There is bilateral vertebral and basilar artery and bilateral carotid siphon internal carotid artery calcifications. There is nonspecific diminished attenuation cerebral white matter, likely due to synchronizer cande small vessel ischemic changes. No intracranial mass lesion or hemorrhage or recent cerebrovascular accident is evident. No midline s hift or mass effect effect. No subdural or epidural hematoma. Bilateral old nasal plate fractures. No fracture or bone destruction of the cranial vault. Included paranasal sinuses are unremarkable. Th ere is partial opacification of the left mastoid air cells. The right mastoid air cells are clear. IMPRESSION: Old right frontoparietal infarct and chronic bilateral basal ganglia lacunar infarcts Cerebral atherosclerosis and chronic small vessel ischemic changes of the cerebral white matter Reviewed, dictated and finalized at [facility]. Reviewed, dictated and finalized at [facility]. IMPRESSION: Old right frontoparietal infarct and chronic bilateral basal gangl ia lacunar infarcts Cerebral atherosclerosis and chronic small vessel ischemic changes of the cereb ral white matter
--- NOTE | ~2021-01-16 | XR_ITS ---
XR chest 1V portable DATE: 01/16/2021 22:56 INDICATION: Cough TECHNIQUE: Portable AP chest on 01/16/2021 at 2249 hours COMPARISON: December 29, 2020 AP portable chest FINDINGS: Normal heart size. No hilar or mediastinal enlargement. There is mild residual infiltrate or atelectasis in the left retrocardiac area, left lower lobe, impr su since December 29, 2020. No pulmonary infiltrate or consolidation is noted otherwise. IMPRESSION: Resolving left lower lobe pneumonia, considerably improved since 12/29/2020 Reviewed, dictated and finalized at [facility].
[2021-01-16 22:14] VITALS: BP 153/78; PULSE 79; RESP 12; O2SAT 100
--- NOTE | 2021-01-16 22:14 | PC.NURSE ---
EDMD and presented to bedside. states pt has had headaches for the past 48 hours and neck pain. states she gave pt 1g extra strength to tx headache and pt is currently denying headache and all pain and discomfort. Per , pt behaviors and ability to manipulate are all within baseline. Pt able to perform neuro assessment without difficulty. Pt noted to be alert and oriented x4. Pt has hx of left side weakness due to previous strokes; pt able to manipulate left upper and lower extremities with some limitations. No complaints or concerns voiced at his time and call button and personal items within reach. and pt advised to press call button for assistance.
--- NOTE | 2021-01-16 22:41 | PC.NURSE ---
Pt to ct via cart.
--- NOTE | 2021-01-16 22:52 | PC.NURSE ---
Pt returned from CT.
[2021-01-16 23:11] LABS: Basophils Absolute Auto 0.1 K/mm3 (0.0-0.1); Basophils Percent Auto 0.6 % (0.2-1.2); Eosinophils Absolute Auto 0.2 K/mm3 (0-0.3); Eosinophils Percent Auto 2.7 % (0-4.4); Hematocrit 26.9 % (42.0-52.0); Hemoglobin 9.3 g/dL (14.0-18.0); Immature Granulocyte Absolute 0.05 K/mm3 (0.00-0.031); Immature Granulocyte Percent A 0.6 % (0-0.5); Lymphocytes Absolute Auto 1.31 K/mm3 (0.9-3.2); Lymphocytes Percent Auto 16.9 % (18.3-44.2); Mean Corpuscular HGB Conc 34.6 g/dl (32-36); Mean Corpuscular Hemoglobin 30.5 pg (26-34); Mean Corpuscular Volume 88.2 fl (80-100); Mean Platelet Volume 8.8 fl (7.4-10.4); Monocytes Absolute Auto 0.9 K/mm3 (0.1-0.6); Monocytes Percent Auto 12.1 % (2.6-8.5); Neutrophils Absolute Auto 5.2 K/mm3 (1.3-6.7); Neutrophils Percent Auto 67.1 % (45.5-73.1); Platelet Count Result 285 k/mm3 (150-375); Red Blood Count 3.05 M/mm3 (4.6-6.20); Red Cell Distribution Width 12.7 % (11.5-14.5); White Blood Count 7.8 K/mm3 (4.5-10.0)
[2021-01-16 23:22] LABS: Anion Gap 5 mmol/L (8-16); Blood Urea Nitrogen 52 mg/dL (9-20); Calcium 8.3 mg/dL (8.4-10.2); Carbon Dioxide 27 mmol/L (22-30); Chloride 107 mmol/L (98-107); Estimated Glomerular Filt Rate 23; Glucose 188 mg/dL (75-110); Potassium 5.7 mmol/L (3.4-5.0); Sodium 139 mmol/L (137-145)
--- NOTE | 2021-01-17 00:37 | ED.NEUROSD ---
HPI - Neuro Symptoms/Deficit General Chief Complaint: Suspected CVA Stated Complaint: leavitt with neck pain - possible cva has hx Time Seen by Provider: 01/16/21 22:13 History of Present Illness HPI Narrative: Patient is a 70-year-old gentleman presents to emergency department chief complaint of headache. Patient reports that he has been having episodes of headache for the last several days states last for about a minute at a time denies any focal weakness when this occurs patient was concerned that he may be having a stroke since he has had 3 prior strokes. Patient is currently on aspirin and Plavix. Patient's family notes no new weakness no new changes in speech. Related Data Home Medications Medication Instructions Recorded Confirmed allopurinol [Zyloprim] 100 mg PO DAILY 10/26/19 12/30/20 aspirin 325 mg PO DAILY 10/26/19 12/30/20 carvedilol 25 mg PO BID 10/26/19 12/30/20 fluoxetine 40 mg PO DAILY 10/26/19 12/30/20 guanfacine 1 mg PO HS 10/26/19 12/30/20 levetiracetam 500 mg PO BID 10/26/19 12/30/20 levothyroxine 175 mcg PO DAILY 10/26/19 12/30/20 rosuvastatin 10 mg PO DAILY 10/26/19 12/30/20 clopidogrel 75 mg PO HS 06/29/20 12/30/20 insulin lispro 100 unit/mL 1 sliding scale dose SUBCUT 10/16/20 12/30/20 subcutaneous cartridge USEASDIRECTD Lokelma See Rx Instructions .ROUTE .COMPLEX 12/29/20 12/30/20 duloxetine 30 mg PO DAILY 12/29/20 12/30/20 risperidone 1 mg PO HS 12/30/20 12/30/20 Allergies Allergy/AdvReac Type Severity Reaction Status Date / Time No Known Allergies Allergy Verified 10/16/20 14:06 Review of Systems Review of Systems: Narrative: A 10 system review of systems was completed on the patient and is negative except for what is stated in the HPI. Nursing and ancillary documentation was reviewed. [facility] Past Medical History Medical History (Updated 01/17/21 @ 00:40 by Imtiaz Hawthorne MD) Chronic anemia CKD (chronic kidney disease) Stage III with creatinine currently at his baseline around 2.2 CVA (cerebral vascular accident) Hemorrhagic stroke in 2003, thrombotic stroke in 2014 resulting in left-sided hemiparesis and left facial droop, 3rd stroke 09/2018 in the left mid brain resulting in diplopia, right-sided weakness and double vision Depression Diabetic nephropathy Diabetic polyneuropathy History of BPH Hx of gout Hx of seizure disorder Hyperlipidemia Hypertension Hypothyroidism Insulin dependent diabetes mellitus On insulin pump. Patient's last hemoglobin A1c October 2018 was 7.[address] Surgical History Surgical History H/O cataract removal with insertion of prosthetic lens Bilateral History of shoulder surgery Right shoulder surgery to remove a bone spur Status post placement of implantable loop recorder December 2018 Family History Family History Father Diabetes mellitus Mother Family history of arthritis Other Family history of hearing loss Social History Social History Social History: The patient is a full code at this time. home is a durable power employment law attorney for healthcare.They have 2 children. 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 Patient continues to use chewing tobacco Smoking status: Unknown if ever smoked Alcohol intake: unknown Substance use: unknown Gender identity (if verbalized by the patient): Male Spiritual care concerns: No Agree to blood products: Yes Exam Narrative: Exam Narrative: GENERAL: Well-appearing, well-nourished, and in no acute distress. HEAD: Normocephalic, atraumatic. EYES: PERRLA and EOMI. ENT: Nares clear, no rhinorrhea or epistaxis. Mucous membranes moist. NECK: Supple. CHEST: Clear to auscultation. No respiratory distress. HEART: Regular rate and rhythm. No murmur heard. Normal peripheral pulses.
[2021-01-17 00:56] VITALS: BP 156/70; PULSE 76; RESP 14; TEMP 37; O2SAT 100
--- NOTE | 2021-01-17 00:56 | PC.NURSE ---
Pt continues resting on cart in its lowest position with call button and personal items within reach. No complaints or concerns voiced at this time. remains at bedside and updated on poc with all questions addressed. Pt in no obvious distress with breathing even and unlabored and vitals stable. Awaiting arrival of EMS; advised to press call button for assistance.
--- NOTE | 2021-01-17 01:08 | PC.NURSE ---
contacted [facility] to transfer patient back home to [place]. eta [phone]
[2021-01-17 02:09] VITALS: BP 156/90; PULSE 76; RESP 18; O2SAT 100
--- NOTE | 2021-01-17 02:45 | PC.NURSE ---
[facility] came at 0230
== END 2021-01-17 02:10 | disposition home or self-care (01) ==
PROVIDERS: Emergency Provider Emergency Medicine; PCP Family Medicine
DX: R51.9 Headache, unspecified (principal); E11.22 Type 2 diabetes mellitus with diabetic chronic kidney disease; I12.9 Hypertensive chronic kidney disease with stage 1 through stage 4 chronic kidney disease, or unspecified chronic kidney disease; N18.30 Chronic kidney disease, stage 3 unspecified; D63.1 Anemia in chronic kidney disease; I69.892 Facial weakness following other cerebrovascular disease; I69.854 Hemiplegia and hemiparesis following other cerebrovascular disease affecting left non-dominant side; I69.998 Other sequelae following unspecified cerebrovascular disease; I69.951 Hemiplegia and hemiparesis following unspecified cerebrovascular disease affecting right dominant side; H53.2 Diplopia; E11.21 Type 2 diabetes mellitus with diabetic nephropathy; E11.42 Type 2 diabetes mellitus with diabetic polyneuropathy; N40.0 Benign prostatic hyperplasia without lower urinary tract symptoms; M10.9 Gout, unspecified; G40.909 Epilepsy, unspecified, not intractable, without status epilepticus; F32.9 Major depressive disorder, single episode, unspecified; Z79.4 Long term (current) use of insulin; Z96.41 Presence of insulin pump (external) (internal); Z79.02 Long term (current) use of antithrombotics/antiplatelets; Z79.82 Long term (current) use of aspirin; Z98.49 Cataract extraction status, unspecified eye; Z96.1 Presence of intraocular lens
CPT/HCPCS: 36415; 70450; 71045; 80048; 85025; 99284

== ENCOUNTER 2021-06-07 10:04 | Emergency (ER) | payer OTHER, MEDICARE, SELFPAY ==
--- NOTE | ~2021-06-07 | CT_ITS ---
EXAMINATION: CT facial & cervical spine wo DATE: 06/07/2021 11:13 INDICATION: Status post fall. TECHNIQUE: Computed tomography (CT) of the maxillofacial region and cervical spine was performed with out intravenous contrast. The dose-length product was 278.23 mGy-cm. COMPARISON: None FINDINGS: MAXILLOFACIAL CT: Chronic bilateral nasal fractures. No acute maxillofacial fracture. Paranasal sinuses and mastoids ar e pneumatized. Orbits are symmetric. CERVICAL SPINE CT: Straightening of cervical lordosis. There is disc narrowing at C2-3 through C5-6. Odontoid process wi thin normal limits. There is mild multilevel uncinate and facet hypertrophy. No evidence for perched facet. Craniovertebral junction within normal limits. No evidence for perched facet. No significant p araspinal soft tissue abnormality. IMPRESSION: 1. No acute abnormality of the maxillofacial bones or cervical spine. Reviewed, dictated and finalized at location A.
--- NOTE | ~2021-06-07 | CT_ITS ---
EXAMINATION: CT brain wo con DATE: 06/07/2021 11:13 INDICATION: Status post fall. CVA. TECHNIQUE: Computed tomography (CT) of the head was performed without intravenous contrast. The dose- length product was 681.00 mGy-cm. Automated exposure control and iterative reconstruction technique w ere employed. 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 Chronic bilateral lacunar in farctions. There is intracranial atherosclerosis. Generalized atrophy. There are scattered mild periv entricular and subcortical white matter changes, most likely related to small vessel ischemic disease (microangiopathy). Paranasal sinuses and mastoids are pneumatized. No depressed skull fractures. Chr onic nasal fractures. IMPRESSION: 1. No acute intracranial abnormality. No significant interval change. Reviewed, dictated and finalized at location A.
--- NOTE | ~2021-06-07 | XR_ITS ---
XR hip BI 2V w AP pelvis 06/07/2021 11:02 Indication: Hip pain. Procedure: AP pelvis and 2 views each hip Comparison: 06/13/2020 Findings: There is moderate bilateral osteoarthritis of the hips. Pelvic rings are intact. There are extensive atherosclerotic changes. No acute fracture or traumatic malalignment. Impression: 1: No acute fracture. 2: Moderate osteoarthritis of the hips. Reviewed, dictated and finalized at location A. Impression: 1: No acute fracture. 2: Moderate osteoarthritis of the hips.
--- NOTE | ~2021-06-07 | XR_ITS ---
EXAMINATION: XR chest 1V 06/07/2021 11:02 INDICATION: Cough. Possible CVA. PROCEDURE: AP portable chest COMPARISON: Comparison to multiple prior studies sequentially, with oldest reviewed study dated 05/16. FINDINGS: The lungs are clear. The cardiomediastinal silhouette is within normal limits. There are no pleural effusions. There is no pneumothorax suspected. Shallow inspiration with crowding of the pulmonary vessels. There are degenerative changes of the left glenohumeral joint. IMPRESSION: 1: NO ACUTE CARDIOPULMONARY DISEASE. Reviewed, dictated and finalized at location A.
--- NOTE | ~2021-06-07 | XR_ITS ---
XR ankle LT min 3V 06/07/2021 11:02 Indication: Left ankle pain and swelling Procedure: 4 views left ankle Comparison: No prior studies for comparison. Findings: No fracture, subluxation or dislocation. Ankle mortise intact. There is extensive atheroscl erosis. Talar dome is grossly unremarkable. There are degenerative changes of the midfoot. Impression: 1: No acute fracture. Reviewed, dictated and finalized at location A. Impression: 1: No acute fracture.
[2021-06-07 10:11] LABS: Glucose Point of Care 386 mg/dl (65-105)
[2021-06-07 10:15] VITALS: BP 126/62; PULSE 62; RESP 11; TEMP 36.3; O2SAT 99
--- NOTE | 2021-06-07 10:38 | ECG_ITS ---
Measurements Intervals [place] Rate: 62 P: 78 MA: 191 QRS: -11 QRSD: 105 T: 71 QT: 469 QTc: 478 Interpretive Statements SINUS RHYTHM BORDERLINE T WAVE ABNORMALITY- HIGH LATERAL LEADS PROLONGED QT INTERVAL BASELINE ARTIFACT- V1 ABNORMAL ECG Electronically Signed On 06-07-2021 16:51:07 CDT by Paddy Rose D.O.
--- NOTE | 2021-06-07 10:43 | ED.GENADULT ---
HPI - General Adult General Chief complaint: Fall Stated complaint: FALL/AMS Time Seen by Provider: 06/07/21 10:08 Source: patient and family Mode of arrival: ambulatory Limitations: altered mental status History of Present Illness HPI narrative: Patient brought in by EMS after a fall earlier today. Patient has some baseline confusion so serves as primary historian. indicates that patient was hospitalized here earlier this year for urinary tract infection and pneumonia. There was discussion as to whether patient should be placed in a nursing facility but he was discharged home. He has had little clinical improvement and therefore was placed on hospice. indicates that between 0500 and 0530 this morning patient was exhibiting altered mental status. He was making statements that did not make much sense. indicates that last night around 9 PM he was in his normal state of health. He is some chronic confusion, usually oriented to person and place. indicates patient has had multiple strokes in the past and has left-sided deficits. He is wheelchair-bound. Around 7:00 this morning patient's heard a thud in his room. She walked in to find patient on the floor. He was conscious at that time. He contacted hospitalist who came out to evaluate patient. He was sent to the ER for further evaluation. indicates that patient has a new onset left-sided facial droop. Patient reports some left ankle pain but denies any other symptoms whatsoever. Patient is DNR. Related Data Home Medications Medication Instructions Recorded Confirmed allopurinol [Zyloprim] 100 mg PO DAILY 10/26/19 12/30/20 aspirin 325 mg PO DAILY 10/26/19 12/30/20 carvedilol 25 mg PO BID 10/26/19 12/30/20 fluoxetine 40 mg PO DAILY 10/26/19 12/30/20 guanfacine 1 mg PO HS 10/26/19 12/30/20 levetiracetam 500 mg PO BID 10/26/19 12/30/20 levothyroxine 175 mcg PO DAILY 10/26/19 12/30/20 rosuvastatin 10 mg PO DAILY 10/26/19 12/30/20 clopidogrel 75 mg PO HS 06/29/20 12/30/20 risperidone 1 mg PO HS 12/30/20 12/30/20 duloxetine mg PO 06/07/21 Allergies Allergy/AdvReac Type Severity Reaction Status Date / Time insulin glargine AdvReac Severe Other Verified 06/07/21 13:00 [From Lantus U-100 Insulin] Review of Systems Review of Systems: CONSTITUTIONAL: Denies fever, chills, or sweats. EYES: Denies visual changes, redness, or discharge. ENT: Denies rhinorrhea, congestion, sore throat, or otalgia. CARDIOVASCULAR: Denies chest pain, palpitations, or edema. RESPIRATORY: Denies cough or dyspnea. GASTROINTESTINAL: Denies abdominal pain, nausea, vomiting, or diarrhea. GENITOURINARY: Denies dysuria or hematuria. SKIN: Denies rash or itching. MUSCULOSKELETAL: Ankle pain. Denies back pain or myalgia. NEUROLOGIC: Denies headache, numbness, dizziness, or weakness. PSYCHIATRIC: Denies anxiety or depression. [facility] Past Medical History Medical History (Updated 06/07/21 @ 14:28 by Xander Escobar, MANDO, BC) Chronic anemia CKD (chronic kidney disease) Stage III with creatinine currently at his baseline around 2.2 CVA (cerebral vascular accident) Hemorrhagic stroke in 2004, thrombotic stroke in 2014 resulting in left-sided hemiparesis and left facial droop, 3rd stroke 09/2018 in the left mid brain resulting in diplopia, right-sided weakness and double vision Depression Diabetic nephropathy Diabetic polyneuropathy History of BPH Hx of gout Hx of seizure disorder Hyperlipidemia Hypertension Hypothyroidism Insulin dependent diabetes mellitus On insulin pump. Patient's last hemoglobin A1c October 2018 was 7.[address] Surgical History Surgical History H/O cataract removal with insertion of prosthetic lens Bilateral History of shoulder surgery Right shoulder surgery to remove a bone spur Status post placement of implantable loop recorder December 2018 Family History
[2021-06-07 11:51] LABS: Basophils Percent Auto 0.4 % (0.2-1.2); Eosinophils Absolute Auto 0.3 K/mm3 (0-0.3); Eosinophils Percent Auto 3.2 % (0-4.4); Hematocrit 24.2 % (42.0-52.0); Hemoglobin 8.2 g/dL (14.0-18.0); Immature Granulocyte Absolute 0.04 K/mm3 (0.00-0.031); Immature Granulocyte Percent A 0.5 % (0-0.5); Lymphocytes Absolute Auto 0.93 K/mm3 (0.9-3.2); Lymphocytes Percent Auto 11.9 % (18.3-44.2); Mean Corpuscular HGB Conc 33.9 g/dl (32-36); Mean Corpuscular Hemoglobin 29.3 pg (26-34); Mean Corpuscular Volume 86.4 fl (80-100); Monocytes Absolute Auto 1.1 K/mm3 (0.1-0.6); Neutrophils Absolute Auto 5.5 K/mm3 (1.3-6.7); Platelet Count Result 240 k/mm3 (150-375); Red Cell Distribution Width 12.2 % (11.5-14.5); White Blood Count 7.8 K/mm3 (4.5-10.0)
[2021-06-07 12:00] LABS: INR 1.1; Prothrombin Time 13.7 Seconds (11.1-14.7)
[2021-06-07 12:02] LABS: Partial Thromboplastin Time 43.6 SECONDS (22.3-36.8)
[2021-06-07 12:08] LABS: Beta-Hydroxybutyrate/Acetoacetate 0.05 mmol/L (0.02-0.27)
[2021-06-07 12:47] VITALS: BP 140/70; PULSE 63; RESP 12; TEMP 36.3; O2SAT 100
[2021-06-07 12:52] LABS: Add Urine Microscopic? YES; Appearance Urine Cloudy (Clear); Bacteria Urine Trace /hpf; Bilirubin Urine Negative (Negative); Blood Urine Negative (Negative); Color Urine Yellow (Yellow); Glucose Urine UA 3+ mg/dL (Negative); Ketones Urine Negative (Negative); Leukocyte Esterase Ur 3+ LEU/UL (Negative); Mucus Urine Rare /lpf; Nitrate Urine Negative (Negative); Protein Urine 2+ mg/dL (Negative); Specific Grav Ur 1.013 (1.001-1.035); Squamous Epithelial Cell Urine Rare /hpf (Few); Urobilinogen Urine Negative mg/dL (<2.0); WBC Urine 16-20 /hpf
[2021-06-07 12:54] LABS: Alanine Aminotransferase 13 U/L (4-50); Albumin Level 3.6 g/dL (3.5-5.1); Alkaline Phosphatase 145 U/L (38-126); Anion Gap 10 mmol/L (8-16); Aspartate Amino Transferase 17 U/L (17-59); Bilirubin,Total 0.4 mg/dL (0.2-1.3); Blood Urea Nitrogen 43 mg/dL (9-20); Calcium 8.4 mg/dL (8.4-10.2); Carbon Dioxide 21 mmol/L (22-30); Chloride 103 mmol/L (98-107); Estimated CRCL calculation 19 ml/min; Estimated Glomerular Filt Rate 21; Glucose 391 mg/dL (65-110); Potassium 4.9 mmol/L (3.4-5.0); Sodium 134 mmol/L (137-145)
[2021-06-07 12:58] LABS: NT Pro B Type Natriuretic Pept 491 pg/mL (5-100)
[2021-06-07 13:01] LABS: Troponin I < 0.012 ng/mL (0.000-0.034)
--- NOTE | 2021-06-07 13:01 | PC.NURSE ---
Patient's accessed his [employer] glucose monitor and it is reporting his current sugar at 395. Patient has medtronic pump in place, reports a max basal insulin rate of 2 units insulin per hour.
[2021-06-07] MEDS: SODIUM CHLORIDE 0.9% IV 500 ML 999 ML IV CONT (13:13)
[2021-06-07 14:01] VITALS: BP 142/75; PULSE 64; RESP 9; TEMP 36.2; O2SAT 100
[2021-06-07 14:31] VITALS: BP 136/75; PULSE 65; RESP 8
[2021-06-07 15:07] LABS: Glucose Point of Care 391 mg/dl (65-105)
[2021-06-07 15:14] LABS: Troponin I < 0.012 ng/mL (0.000-0.034)
[2021-06-07 16:00] VITALS: BP 141/98; PULSE 72; RESP 17; TEMP 36.2; O2SAT 99
--- NOTE | 2021-06-07 16:21 | PC.NURSE ---
Patient is noted to have early stages of pressure ulcer to both heals. Left heal has dark center but no open wound. Right heal has redness throughout but no open wound.
== END 2021-06-07 16:00 | disposition hospice, home (50) ==
PROVIDERS: Emergency Provider Nurse Practitioner; PCP Family Medicine
DX: N30.00 Acute cystitis without hematuria (principal); S00.03XA Contusion of scalp, initial encounter; E11.22 Type 2 diabetes mellitus with diabetic chronic kidney disease; I12.9 Hypertensive chronic kidney disease with stage 1 through stage 4 chronic kidney disease, or unspecified chronic kidney disease; N18.30 Chronic kidney disease, stage 3 unspecified; I69.354 Hemiplegia and hemiparesis following cerebral infarction affecting left non-dominant side; I69.392 Facial weakness following cerebral infarction; I69.398 Other sequelae of cerebral infarction; H53.2 Diplopia; I69.351 Hemiplegia and hemiparesis following cerebral infarction affecting right dominant side; E11.42 Type 2 diabetes mellitus with diabetic polyneuropathy; E11.21 Type 2 diabetes mellitus with diabetic nephropathy; Z79.4 Long term (current) use of insulin; Z96.41 Presence of insulin pump (external) (internal); E03.9 Hypothyroidism, unspecified; Z98.49 Cataract extraction status, unspecified eye; Z96.1 Presence of intraocular lens; Z99.3 Dependence on wheelchair; Z66 Do not resuscitate; M16.0 Bilateral primary osteoarthritis of hip; R94.31 Abnormal electrocardiogram [ECG] [EKG]; W19.XXXA Unspecified fall, initial encounter
CPT/HCPCS: 36415; 51702; 70450; 70486; 71045; 72125; 73521; 73610; 80053; 81001; 82010; 82948; 83880; 84484; 85025; 85610; 85730; 87077; 87086; 87186; 93005; 96365; 99284; J0696; J7040